=== PATIENT | male | born 1955 | race Caucasian/White ===

== ENCOUNTER 2021-08-23 10:59 | Emergency (ER) | payer MEDICARE, OTHER, SELFPAY ==
--- NOTE | ~2021-08-23 | XR_ITS ---
EXAMINATION: XR chest 1V portable INDICATION: Cough TECHNIQUE: Portable AP chest at 1123 hours COMPARISON: None available FINDINGS: A calcified nodule of the right lower lobe is consistent with old granulomatous disease. Th ere are minimal airspace opacities of the left upper and lower lung zones. No pleural effusion or pne umothorax is identified. The cardiomediastinal silhouette is normal. IMPRESSION: 1. Minimal airspace opacities of the left lung, consistent with atelectasis versus pneumonia. Reviewed, dictated and finalized at location A. [place] [employer] IMPRESSION: 1. Minimal airspace opacities of the left lung, consistent with atelectasis hao jorge pneumonia.
[2021-08-23 11:05] VITALS: BP 128/71; PULSE 92; RESP 18; TEMP 35.7; O2SAT 97
[2021-08-23 11:45] VITALS: BP 132/86; PULSE 78; RESP 13; TEMP 35.7
[2021-08-23 11:57] VITALS: BP 132/86; PULSE 74; RESP 14; O2SAT 97
--- NOTE | 2021-08-23 12:09 | ED.GENADULT ---
HPI - General Adult General Chief complaint: Upper Respiratory Infection Stated complaint: i think i have covid Time Seen by Provider: 08/23/21 11:44 History of Present Illness HPI narrative: 66-year-old male presented to the department for evaluation of cough and shortness of breath after Covid exposure. Patient was exposed to Covid over . Patient's did test positive for Covid on 08/15. Patient began feeling symptomatic on 08/16. Patient felt that his symptoms had been improving but then began to worsen. Patient complains of cough, shortness of breath and generalized fatigue. Related Data Allergies Allergy/AdvReac Type Severity Reaction Status Date / Time No Known Allergies Verified 07/20/10 11:40 Review of Systems Review of Systems: CONSTITUTIONAL: Intermittent fever, chills, generalized fatigue EYES: Denies visual changes, redness, or discharge. ENT: Denies rhinorrhea, congestion, sore throat, or otalgia. CARDIOVASCULAR: Denies chest pain, palpitations, or edema. RESPIRATORY: Cough and dyspnea. GASTROINTESTINAL: Denies abdominal pain, nausea, vomiting, or diarrhea. GENITOURINARY: Denies dysuria or hematuria. SKIN: Denies rash or itching. MUSCULOSKELETAL: Denies back pain, joint pain, or myalgia. NEUROLOGIC: Denies headache, numbness, or weakness. PSYCHIATRIC: Denies anxiety or depression. Exam Narrative: APPEARANCE: Well appearing, no pain in distress, well-nourished. Head normocephalic atraumatic. EYES: PERRLA/EOMI, conjunctivae very clear. NOSE: Normal no drainage EARS:TMS clear Kirit Whitley, with good light reflex. THROAT: Pharynx clear, no exudate. NECK: Supple. No adenopathy, no masses. RESPIRATORY: Airway patent, respirations nonlabored. Clear to auscultation bilaterally, no rales, rhonchi, wheezing. CARDIOVASCULAR: Regular rate and rhythm without murmurs rubs or gallops. ABDOMINAL: Soft, nontender, nondistended, no hepatosplenomegally MUSCULOSKELETAl: Moves all extremities. Strength/ROM intact, No edema, No calf tenderness. NEURO: Alert. Cranial nerves II through XII intact. Good gait. Good coordination SKIN:: Warm, dry. Normal Color PSYCHIATRIC: Normal affect/mood, normal interaction with parents. Course Course Emergency Course: Patient's x-ray does show opacities on the left lung consistent with pneumonia versus atelectasis. Patient is presumed to have a viral Covid pneumonia. Patient states he did feel he was improving but then worsened. Due to the possibility of having underlying bacterial infection patient was started on antibiotics, azithromycin. Patient was updated on the results of his imaging. Patient's vital signs were stable during his stay in the emergency room. Patient was comfortable with the plan for discharge and close follow-up. Patient was educated on the importance of close follow-up with his primary care physician. Patient was also educated on the importance of return to the emerge department if he had any worsening symptoms. All questions and concerns were addressed. Vital Signs Vital signs: Vital Signs Temperature 96.2 F L 08/23/21 11:05 Pulse Rate 92 08/23/21 11:05 Respiratory Rate 18 08/23/21 11:05 Blood Pressure 128/71 08/23/21 11:05 Pulse Oximetry 97 08/23/21 11:05 Temperature 96.2 F L 08/23/21 11:45 Pulse Rate 89 08/23/21 12:55 Respiratory Rate 16 08/23/21 12:55 Blood Pressure 112/75 08/23/21 12:55 Pulse Oximetry 95 08/23/21 12:55 Medical Decision Making Differential Diagnosis Differential Diagnosis: Viral pneumonia, Covid pneumonia, bacterial pneumonia Vital Signs Vital Signs: Vital Signs Temperature 96.2 F L 08/23/21 11:05 Pulse Rate 92 08/23/21 11:05 Respiratory Rate 18 08/23/21 11:05 Blood Pressure 128/71 08/23/21 11:05 Pulse Oximetry 97 08/23/21 11:05 Temperature 96.2 F L 08/23/21 11:45 Pulse Rate 89 08/23/21 12:55 Respiratory Rate 16 08/23/21 12:55 Blood Pressure 112/75 08/23/21 12:55
[2021-08-23 12:55] VITALS: BP 112/75; PULSE 89; RESP 16; O2SAT 95
[2021-08-25 19:26] LABS: SARS-CoV-2 RNA PCR Negative
== END 2021-08-23 12:56 | disposition home or self-care (01) ==
PROVIDERS: Emergency Provider Emergency Medicine; PCP Internal Medicine
DX: J06.9 Acute upper respiratory infection, unspecified (principal); Z20.822 Contact with and (suspected) exposure to COVID-19
CPT/HCPCS: 71045; 99283; C9803; U0003; U0005

== ENCOUNTER 2023-06-10 16:31 | Outpatient (CLI) | payer MEDICARE, OTHER, SELFPAY ==
--- NOTE | ~2023-06-10 | CT_ITS ---
EXAMINATION: CT abdomen pelvis wo con DATE: 06/10/2023 16:59 INDICATION: Remote history of uroepithelial cancer, apparently untreated. Gross hematuria. TECHNIQUE: Computed tomography (CT) of the abdomen and pelvis was performed without intravenous contr ast. Automated exposure control and iterative reconstruction technique were employed. The dose-length product was 544.51 mGy-cm. COMPARISON: None. FINDINGS: Lower thorax: Calcified right upper lobe granuloma. Coronary artery calcification. Liver: Multiple cysts/hemangiomas. Multiple smaller hypodensities, too small to characterize. Biliary/Gallbladder: Gallbladder is normal. No bile duct dilation. Pancreas: No mass or duct dilation. Spleen: Normal. Adrenals:No mass. Kidneys: No suspicious mass, obstructing stone, or hydronephrosis. GI tract: No small or large bowel dilation. Normal appendix. Mesentery/Peritoneum: No ascites, mass, or free air. Retroperitoneum: No mass. Atherosclerotic abdominal aortic and/or arterial calcifications. Pelvis: Bladder wall thickening. No definite intraluminal filling defect or mass. Prostate enlargemen t with calcification. Soft Tissues: Soft tissues and body wall unremarkable. Bones: No acute osseous finding. IMPRESSION: No definite mass detected in the collecting system, noting that dilation is limited by noncontrast te [place]. No hydronephrosis. No lymphadenopathy. Bladder wall thickening may be secondary to cystitis or outlet compromise. Otherwise, acute abdominal pelvic process detected Reviewed, dictated and finalized at location K. IMPRESSION: No definite mass detected in the collecting system, noting that dilation is vail ited by noncontrast technique. No hydronephrosis. No lymphadenopathy. Bladder wall thickening may be secondary to cystitis or outlet compromise. Otherwise, acute abdominal pelvic process detected
== END 2023-06-10 16:32 | disposition home or self-care (01) ==
PROVIDERS: PCP Physician Assistant; Visit Provider Urology
DX: Z85.51 Personal history of malignant neoplasm of bladder (principal)
CPT/HCPCS: 74176

== ENCOUNTER 2023-06-11 02:12 | Day surgery (SDC) | payer MEDICARE, OTHER, SELFPAY ==
[2023-06-11] VITALS (9 sets, daily range): BP systolic 128–151; BP diastolic 70–86; PULSE 51–65; RESP 10–16; TEMP 36.1–36.7; O2SAT 100; BMI 26.4; BMI 26.2
--- NOTE | ~2023-06-11 | XR_ITS ---
EXAMINATION: XR retrograde pyelo w/stent BI DATE: 06/11/2023 14:38 INDICATION: Bilateral retrograde pyelograms and right-sided ureteral stent placement. TECHNIQUE: 27 fluoroscopic images of the abdomen and pelvis were obtained during procedure performed by Dr. Russell. Radiologist was not present for the imaging or procedure. The amount of fluoroscopy time used during this procedure was 0.5 minutes. COMPARISON: CT dated 06/10/2023 FINDINGS: Images demonstrate cannulation and retrograde contrast injection into the bilateral ureters and renal collecting systems. On the left there is a short mild stricture with smooth margins at the distal le ft ureter. No hydronephrosis. Left renal collecting system appears normal. The right ureter is normal . There appears to be relative narrowing of the calyces and infundibulum at the upper pole of the lef t kidney relative to the calyces and infundibuli in the mid to lower right kidney. On subsequent imag es with further filling of the collecting system this appears to result from a 1 cm diameter lucent f illing defect raising concern for urothelial carcinoma. Final images demonstrate placement of a right internal ureteral stent with proximal loop formed in the right renal pelvis. IMPRESSION: 1. Approximately 1 cm filling defect at the renal collecting system at the upper pole of the right ki dney concerning for urothelial carcinoma. See procedure note for further detail. 2. Right internal ureteral stent placement in expected position with proximal loop in the renal pelvi s. Reviewed, dictated and finalized at location A. IMPRESSION: 1. Approximately 1 cm filling defect at the renal collecting system at the uppe r pole of the right kidney concerning for urothelial carcinoma. See procedure n ote for further detail. 2. Right internal ureteral stent placement in expected position with proximal l oop in the renal pelvis.
--- NOTE | 2023-06-11 08:25 | PC.NURSE ---
Report to the Outpatient Waiting Room, entrance under the green pavilion located off [facility], at time 1100 on date 06/11/23. Planned Procedure Time: 1300. Time changes happen often and if your time is changed the preop area will call you the afternoon before. - You and your visitor will be asked to self-screen and do not enter if you have any COVID symptoms. - A mask is optional within the hospital at this time. Patients may have clear liquids (water, carbonated beverages, clear teas, apple juice) until 3 hours prior to surgery with a maximum of 20 ounces. - No food from midnight until time of surgery Take the following medications with a SIP of water the morning of surgery: LEVOTHYROXINE DO NOT STOP ANY OF YOUR OTHER PRESCRIPTION MEDICATIONS PRIOR TO SURGERY ?EXCEPT THE FOLLOWING Medications to discontinue per physician: N/A Date to take last dose: N/A Please no make-up, nail welsh, hairspray, perfume, deodorant, or body powder the day of surgery. No jewelry (including any body piercings) or valuables the day of surgery, leave them at home. Please take a shower or bath the night before, or the morning of, surgery with an antibacterial soap. Wear comfortable, loose fitting clothing. - Jewelry must be removed prior to entering the operating room. Rings and piercings that are not removed may be cut off. - The hospital will not accept responsibility for valuables. - Please leave all valuables, including medications, at home the day of surgery. If you are going home after surgery, a licensed route sales delivery drivers supervisor must drive you home. - NO public transportation without another adult if you receive anesthesia. - We recommend that an adult stay with you for 24 hours following discharge. - We also recommend that you do not drive, make important decision, drink alcoholic beverages, or take any drugs that were not prescribed by your health care provider for at least 24 hours after your discharge time. Follow any additional instructions given to you from your surgeon. If you or anyone in your household have experienced Covid symptoms in the past week, please notify your surgeon or the nurse liaison at the phone number below for possible testing. Telephone instructions given to PT - TARA NOVAK and asked if any additional questions and then verbalized understanding. Patient advised to call surgeon office or pre surgery nurse liaison [phone] if any additional questions.
[2023-06-11] MEDS: LACTATED RINGERS 1,000 ML 30 ML IV CONT (11:40)
--- NOTE | 2023-06-11 11:40 | WPDHPUPDATE1 ---
History and Physical Update Update Date/Time: 06/11/23 11:40 History and Physical has been reviewed, including an updated exam of the patient. There are NO changes in the patient's condition. Risks, benefits, and alternatives have been discussed and questions answered. Patient agrees to proceed with procedure. Proceed with cystoscopy, clot evacuation, bilateral retrograde pyelograms, possible TURBT
--- NOTE | 2023-06-11 11:49 | ECG_ITS ---
Measurements Intervals Shepherd Rate: 53 P: 50 ME: 211 QRS: 40 QRSD: 90 T: 49 QT: 398 QTc: 374 Interpretive Statements SINUS BRADYCARDIA WITH FIRST DEGREE AV BLOCK BORDERLINE ECG NO PREVIOUS ECG AVAILABLE FOR COMPARISON Electronically Signed On 06-11-2023 12:31:26 CDT by Ja Calle D.O.
[2023-06-11 11:53] LABS: Basophils Percent Auto 0.7 % (0.2-1.2); Eosinophils Absolute Auto 0.1 K/mm3 (0-0.3); Eosinophils Percent Auto 2.6 % (0-4.4); Hematocrit 46.5 % (42.0-52.0); Hemoglobin 15.5 g/dL (14.0-18.0); Immature Granulocyte Absolute 0.03 K/mm3 (0.00-0.031); Immature Granulocyte Percent A 0.6 % (0-0.5); Lymphocytes Absolute Auto 1.93 K/mm3 (0.9-3.2); Lymphocytes Percent Auto 35.5 % (18.3-44.2); Mean Corpuscular HGB Conc 33.3 g/dl (32-36); Mean Corpuscular Hemoglobin 30.8 pg (26-34); Mean Corpuscular Volume 92.3 fl (80-100); Mean Platelet Volume 10.3 fl (7.4-10.4); Monocytes Absolute Auto 0.6 K/mm3 (0.1-0.6); Neutrophils Absolute Auto 2.7 K/mm3 (1.3-6.7); Neutrophils Percent Auto 49.6 % (45.5-73.1); Platelet Count Result 188 k/mm3 (150-375); Red Blood Count 5.04 M/mm3 (4.6-6.20); White Blood Count 5.4 K/mm3 (4.5-10.0)
[2023-06-11 11:58] LABS: Anion Gap 8 mmol/L (8-16); Blood Urea Nitrogen 19 mg/dL (9-20); Carbon Dioxide 25 mmol/L (22-30); Chloride 105 mmol/L (98-107); Estimated CRCL calculation 63 ml/min; Estimated Glomerular Filt Rate > 60; Glucose 93 mg/dL (65-110); Potassium 4.1 mmol/L (3.4-5.0); Prothrombin Time 13.3 Seconds (11.1-14.7); Sodium 138 mmol/L (137-145)
--- NOTE | 2023-06-11 12:00 | SUR.PREOP ---
1200- Notified patient procedure start time will be delayed. Patient and spouse, Alison verbalized understanding.
--- NOTE | 2023-06-11 12:07 | WPDANESEPPF ---
Anes - Initial Pre Proc Eval Procedure: Operation Date: 06/11/23 13:00 Proposed Procedures p Cystoscopy, Possible Retrograde Pyelogram, Clot Evacuation, - Mike Russell MD s Possible Transurethral Resection of Bladder Tumor - Mike Russell MD Date/Time: 06/11/23 12:07 Surgeon: Mike Russell MD Pre Op Diagnosis: gross hematuria Patient Data Age: 68 Gender: M Height: 1.78 m Weight: 82.8 kg Allergies Allergy/AdvReac Type Severity Reaction Status Date / Time No Known Allergies Allergy Verified 06/11/23 11:24 Home Medications Medication Instructions Recorded Confirmed Type atorvastatin 10 mg tablet 10 mg PO HS 06/11/23 06/11/23 History levothyroxine 50 mcg tablet 50 mcg PO DAILY 06/11/23 06/11/23 History Laboratory Tests 06/11/23 11:19 WBC 5.4 K/mm3 (4.5-10.0) RBC 5.04 M/mm3 (4.6-6.20) Hgb 15.5 g/dL (14.0-18.0) Hct 46.5 % (42.0-52.0) MCV 92.3 fl (80-100) MCH 30.8 pg (26-34) MCHC 33.3 g/dl (32-36) RDW 12.0 % (11.5-14.5) Plt Count 188 k/mm3 (150-375) MPV 10.3 fl (7.4-10.4) Immature Gran % (Auto) 0.6 H % (0-0.5) Neut % (Auto) 49.6 % (45.5-73.1) Lymph % (Auto) 35.5 % (18.3-44.2) [place] % (Auto) 11.0 H % (2.6-8.5) Eos % (Auto) 2.6 % (0-4.4) Baso % (Auto) 0.7 % (0.2-1.2) Lymph # (Auto) 1.93 K/mm3 (0.9-3.2) [place] # (Auto) 0.6 K/mm3 (0.1-0.6) Eos # (Auto) 0.1 K/mm3 (0-0.3) Baso # (Auto) 0.0 K/mm3 (0.0-0.1) Abs Immat Gran (auto) 0.03 K/mm3 (0.00-0.031) Absolute Neuts (auto) 2.7 K/mm3 (1.3-6.7) Absolute Nucleated RBC 0.0 K/mm3 (0.0-0.012) Nucleated RBC % 0.0 % (0.0-0.2) PT 13.3 Seconds (11.1-14.7) INR 1.0 APTT 31.0 SECONDS (22.3-36.8) Sodium 138 mmol/L (137-145) Potassium 4.1 mmol/L (3.4-5.0) Chloride 105 mmol/L (98-107) Carbon Dioxide 25 mmol/L (22-30) Anion Gap 8 mmol/L (8-16) BUN 19 mg/dL (9-20) Creatinine 1.00 mg/dL (0.7-1.3) Estim Creat Clear Calc 63 ml/min Estimated GFR > 60 (59 - ) Glucose 93 mg/dL (65-110) Calcium 9.0 mg/dL (8.4-10.2) Patient hx anesthesia problems: none Family hx anesthesia problems: none Results Review: All pre-operative results and documents have been reviewed as part of the pre-operative evaluation. [facility] Past Medical History Medical History (Updated 06/11/23 @ 12:07 by Jorge Jose MD) Hyperlipidemia Hypothyroidism Social History Social History Smoking packs per day: 1.5 Smoking cigarettes per day: 30.0 Years smoked: 17 Smoking pack-years: 25.50 Smoking status: Former smoker Tobacco type: cigarettes Smoking end date: 09/16/85 Alcohol intake: former Alcohol use details: QUIT ~1988 Substance use: former Substance use type: marijuana Other substance usage details: QUIT ~1988 Living arrangements: with family Spiritual care concerns: No Anes - Eval Final PreProcedure Day of Procedure 06/11/23 12:07 Patient weight: normal Heart: regular rate and rhythm Lungs: clear to auscultation Airway: Mallampati scale class II Neurological: alert and oriented Last oral intake: >/= 8 hours ASA classification: II Emergent: no Anesthetic plan: proceed Anesthesia type and monitoring: general LMA and standard monitoring Results Review: All pre-operative results and documents have been reviewed as part of the pre-operative evaluation. Informed Consent: The patient's anesthetic plan and its attendant risks and benefits were discussed with the patient/family/POA. Questions were solicited and answers provided to the satisfaction of the patient/family/POA.
[2023-06-11] MEDS: ceFAZolin 2 GM/D5W 50 ML 2 GM/50 ML BAG IVPB (13:44)
[2023-06-11] MEDS: LIDOCAINE HCL 2% GEL UROJET 10 ML PKG MUCOUS MEM (13:59)
--- NOTE | 2023-06-11 14:26 | SUR.OPER ---
Urine and bx specimens sent fresh to Lab per Cathi PCT
--- NOTE | 2023-06-11 14:37 | W.PM.PROC2 ---
Procedure Note - Detailed Date of Procedure 06/11/23 Pre-op Diagnosis gross hematuria Post-op Diagnosis Same (Right upper pole collecting system mass at least 1 cm) Procedure Performed Cystoscopy, bilateral retrograde pyelograms, distal left ureteroscopy, right ureteroscopy with biopsy of right upper pole calyx lesion, right ureteral stent placement 4.8 [place] contour Surgeon Mike Russell MD Anesthesia General Description of Procedure Patient is taken to the operative suite correctly identified. Once anesthesia was obtained he was placed in the dorsal lithotomy position and prepped and draped usual sterile fashion. Twenty-two [place]ib[place]ian scope was inserted the bladder. He does have a lateral lobe hypertrophy. Upon entering the bladder the bladder is heavily trabeculated. Both ureteral orifices normal anatomic position. There was clear efflux from the left UO. The right ureteral orifice had bloody efflux. Using a ureteral catheter a retrograde pyelogram was performed on the left. There were no filling defects in the proximal ureter collecting system. The distal ureter appeared slightly narrow. The right retrograde pyelogram revealed what was possibly a filling defect in the right upper pole. At this point time ureteroscopy of the distal left ureter was performed. There was no evidence of tumors or strictures. The area in question was actually some tortuosity of the ureter. Flexible ureteral scope was then inserted into the right ureteral orifice. There were no ureteral tumors. Upon entering the kidney though the collecting system was all evaluated. A lesion was noted in the right upper pole calyx. It tend to fill most of the calyx. Fluid was taken from this area and sent for cytology. I then biopsied this lesion. 4.8 [place] contour stent was then placed with the proximal end coiled in the renal pelvis and the distal in the bladder. Bladder was drained. 2% viscous lidocaine was inserted urethra patient is taken recovery stable condition. He will follow-up in a week to 2 weeks for discussion of his path and findings. This completes dictation. Please send a copy of operative note to my office. Estimated Blood Loss 10 Drains Yes Packing No Pathology Yes Complications No immediate complications Condition Stable Disposition PACU
== END 2023-06-11 16:18 | disposition home or self-care (01) ==
PROVIDERS: PCP Physician Assistant; Visit Provider Urology
PROC: (CPT 52352; principal; 2023-06-11 13:00)
DX: N28.89 Other specified disorders of kidney and ureter (principal); E78.5 Hyperlipidemia, unspecified; E03.9 Hypothyroidism, unspecified; Z87.891 Personal history of nicotine dependence
CPT/HCPCS: 52354; 52332; 36415; 74420; 80048; 85025; 85610; 85730; 87086; 88108; 88305; 93005; C1758; C1769; C2617; J0690; J1100; J2405; J2704; J3010; J7120; Q9966

== ENCOUNTER 2023-06-25 13:58 | Outpatient (CLI) | payer MEDICARE, OTHER, SELFPAY ==
--- NOTE | ~2023-06-25 | CT_ITS ---
CT of the Abdomen and Pelvis: Indication: Urinary bladder neoplasm Technique: 2.5 mm axial scans were obtained through the abdomen and pelvis prior to and following in travenous administration of 130 cc of Omnipaque 350. Dose reduction technique was used on this scan b y utilizing automated exposure control and iterative reconstruction technique. The dose-length produc t (DLP) was 1553.47 mGy-cm. COMPARISON: 06/10/2023 Findings: Scans through the lung bases are unremarkable. Small hepatic cysts are present. The spleen, pancreas, gallbladder, adrenals and adrenal glands are w ithin normal limits. Right ureteral stent is in place. There is a 2.5 x 2.0 cm right renal mass, hypo enhancing compared to renal cortical parenchyma (series 7 image 71 for example), with lesion extendin g into the collecting system (axial image 72). Small bilateral renal cysts are present. There are ath erosclerotic calcifications of the aorta. No lymphadenopathy. No bowel obstruction or bowel wall thickening. There is no evidence to suggest acute appendicitis. Images through the pelvis were performed. Prostate gland is enlarged. Urinary bladder unremarkable. N o ascites. Impression: 2.5 x 2.0 cm right renal mass, with extension into the renal collecting system, as detailed above. Th is is suspicious for renal cell carcinoma until proven otherwise. Right ureteral stent in place. Reviewed, dictated and finalized at location . Impression: 2.5 x 2.0 cm right renal mass, with extension into the renal collecting system, as detailed above. This is suspicious for renal cell carcinoma until proven ot herwise. Right ureteral stent in place.
== END 2023-06-25 13:59 | disposition home or self-care (01) ==
PROVIDERS: PCP Physician Assistant; Visit Provider Urology
DX: C67.0 Malignant neoplasm of trigone of bladder (principal)
CPT/HCPCS: 74178; Q9967

== ENCOUNTER 2023-07-04 13:30 | Outpatient (CLI) | payer MEDICARE, OTHER, SELFPAY ==
[2023-07-04 14:57] LABS: Alanine Aminotransferase 25 U/L (6-50); Albumin Level 4.6 g/dL (3.5-5.1); Alkaline Phosphatase 54 U/L (38-126); Anion Gap 8 mmol/L (8-16); Aspartate Amino Transferase 30 U/L (17-59); Bilirubin,Total 0.7 mg/dL (0.2-1.3); Blood Urea Nitrogen 18 mg/dL (9-20); Calcium 9.1 mg/dL (8.4-10.2); Carbon Dioxide 28 mmol/L (22-30); Chloride 101 mmol/L (98-107); Estimated Glomerular Filt Rate 60; Glucose 120 mg/dL (65-110); Potassium 4.1 mmol/L (3.4-5.0); Sodium 137 mmol/L (137-145)
== END 2023-07-04 13:31 | disposition home or self-care (01) ==
LOC: ANHSURGERY 13:35
PROVIDERS: PCP Physician Assistant; Visit Provider Urology
DX: N28.89 Other specified disorders of kidney and ureter (principal); Z01.818 Encounter for other preprocedural examination
CPT/HCPCS: 36415; 80053; 86850; 86900; 86901; 87086; 87147; 87181; 87186

== ENCOUNTER 2023-08-01 09:12 | Outpatient (CLI) | payer MEDICARE, SELFPAY | END 2023-08-01 09:13 | disposition home or self-care (01) | LOC: ANHSURGERY 09:16 | PROVIDERS: PCP Physician Assistant; Visit Provider Urology | DX: N28.89 Other specified disorders of kidney and ureter (principal); Z01.818 Encounter for other preprocedural examination | CPT/HCPCS: 36415; 86850; 86900; 86901; 87086 ==

== ENCOUNTER 2023-08-06 11:28 | Inpatient (IN) | payer MEDICARE, SELFPAY ==
--- NOTE | 2023-07-04 13:43 | PC.NURSE ---
PRE-OP INSTRUCTIONS, PLEASE READ CAREFULLY Report to the Outpatient Waiting Room, entrance under the green pavilion located off [facility], at time _0600_ on date _07/09/23_. Planned Procedure Time: _0730_. PACK A SMALL OVERNIGHT BAG AND LEAVE IT IN THE CAR Time changes happen often and if your time is changed the preop area will call you the afternoon before. - You and your visitor will be asked to self-screen and do not enter if you have any COVID symptoms. - A mask is optional within the hospital at this time. -VISITING HOURS 8AM-8PM Patients may have clear liquids (water, carbonated beverages, clear teas, apple juice) until 3 hours prior to surgery (0430 AM) with a maximum of 20 ounces. - No food from midnight until time of surgery Take the following medications with a SIP of water the morning of surgery: _LEVOTHYROXINE_ DO NOT STOP ANY OF YOUR OTHER PRESCRIPTION MEDICATIONS PRIOR TO SURGERY ?EXCEPT THE FOLLOWING Medications to discontinue per ANESTHESIA - _MULTIVITAMIN & SUPPLEMENTS 3 DAYS PRIOR TO SURGERY, Date to take last dose 07/05/23_ Please no make-up, nail equatorial guinean, hairspray, perfume, deodorant, or body powder the day of surgery. No jewelry (including any body piercings) or valuables the day of surgery, leave them at home. Please take a shower or bath the night before, or the morning of, surgery with an antibacterial soap. Wear comfortable, loose fitting clothing. - Jewelry must be removed prior to entering the operating room. Rings and piercings that are not removed may be cut off. - The hospital will not accept responsibility for valuables. - Please leave all valuables, including medications, at home the day of surgery. If you are going home after surgery, a licensed [employer] company driver must drive you home. - NO public transportation without another adult if you receive anesthesia. - We recommend that an adult stay with you for 24 hours following discharge. - We also recommend that you do not drive, make important decision, drink alcoholic beverages, or take any drugs that were not prescribed by your health care provider for at least 24 hours after your discharge time. Follow any additional instructions given to you from your surgeon. If you or anyone in your household have experienced Covid symptoms in the past week, please notify your surgeon or the nurse liaison at the phone number below for possible testing. Instructions given to _PATIENT & SPOUSE_and asked if any additional questions and then verbalized understanding. Patient advised to call surgeon office or pre surgery nurse liaison [phone] if any additional questions.
[2023-07-04 14:02] VITALS: BP 138/74; PULSE 74; RESP 20; TEMP 36.9; O2SAT 100; BMI 26.6
--- NOTE | 2023-07-08 13:35 | WPDANESEPPF ---
Anes - Initial Pre Proc Eval Procedure: Operation Date: 07/09/23 07:30 Proposed Procedures p Hand-Assisted Laparoscopic Right Nephrectomy, Possible Nephroureterectomy with Resection of Right Ureteral Orifice - Mike Russell MD Date/Time: 07/08/23 13:35 Surgeon: Mike Russell MD Pre Op Diagnosis: Rt Renal Mass Patient Data Age: 68 Gender: M Height: 1.78 m Weight: 84.3 kg Last Vital Signs Temp 36.9 C 07/04/23 14:02 Pulse 74 07/04/23 14:02 Resp 20 07/04/23 14:02 BP 138/74 07/04/23 14:02 Pulse Ox 100 07/04/23 14:02 O2 Del Method Room Air 07/04/23 14:02 Allergies Allergy/AdvReac Type Severity Reaction Status Date / Time No Known Allergies Allergy Verified 07/04/23 13:54 Home Medications Medication Instructions Recorded Confirmed Type atorvastatin 10 mg tablet 10 mg PO HS 06/11/23 07/04/23 History levothyroxine 50 mcg tablet 50 mcg PO DAILY 06/11/23 07/04/23 History calcium citrate 315 mg-vitamin D3 1 tablet PO DAILY 07/04/23 07/04/23 History 5 mcg (200 unit) tablet (Calcium Citrate + D) cartilage 40 mg-collagen II 10 1 tablet PO DAILY 07/04/23 07/04/23 History mg-boron 5 mg-hyaluronate 3.3 mg tablet ([employer]) docusate sodium 250 mg capsule 250 mg PO EVERY OTHER DAY 07/04/23 07/04/23 History ferrous sulfate 27 mg iron tablet 27 mg PO DAILY 07/04/23 07/04/23 History multivitamin 1 tablet PO DAILY 07/04/23 07/04/23 History omega 6-kcw-fbp-fish oil 1,000 mg 2 cap PO DAILY 07/04/23 07/04/23 History (120 mg-180 mg) capsule (Fish Oil) Results Review: All pre-operative results and documents have been reviewed as part of the pre-operative evaluation. [facility] Past Medical History Medical History (Updated 07/08/23 @ 13:35 by Nilton Talley DO) Bladder cancer Hyperlipidemia Hypothyroidism Surgical History Surgical History (Updated 07/08/23 @ 13:35 by Nilton Talley DO) H/O transurethral resection of bladder tumor (TURBT) Social History Social History Smoking packs per day: 1.5 Smoking cigarettes per day: 30.0 Years smoked: 17 Smoking pack-years: 25.50 Smoking status: Former smoker Tobacco type: cigarettes Second hand tobacco smoke exposure: No Smoking end date: 09/16/85 Alcohol intake: former Alcohol use details: QUIT 1988 Substance use: former Substance use type: marijuana Other substance usage details: QUIT ~1988 Last use: 1988 Living arrangements: with family Spiritual care concerns: No Anes - Eval Final PreProcedure Day of Procedure 07/08/23 13:35 Patient weight: overweight Heart: regular rate and rhythm Lungs: clear to auscultation Airway: Mallampati scale class II Neurological: alert and oriented Last oral intake: >/= 8 hours ASA classification: III Emergent: no Anesthetic plan: proceed Anesthesia type and monitoring: general ETT and standard monitoring Results Review: All pre-operative results and documents have been reviewed as part of the pre-operative evaluation. Informed Consent: The patient's anesthetic plan and its attendant risks and benefits were discussed with the patient/family/POA. Questions were solicited and answers provided to the satisfaction of the patient/family/POA.
--- NOTE | 2023-07-29 11:04 | PC.NURSE ---
Report to the Outpatient Waiting Room, entrance under the green pavilion located off [facility], at time _0600 on date 08/06/23 . Planned Procedure Time: ___0730 . Time changes happen often and if your time is changed the preop area will call you the afternoon before. - You and your visitor will be asked to self-screen and do not enter if you have any COVID symptoms. - A mask is optional within the hospital at this time. Patients may have clear liquids (water, carbonated beverages, clear teas, apple juice) until 3 hours prior to surgery with a maximum of 20 ounces. - No food from midnight until time of surgery - Infants may have breast milk until 4 hours before surgery, formula 6 hours prior to surgery. - Children will be allowed to drink immediately following surgery. If applicable, please bring a bottle or sippy cup to assist with drinking. Juice, water, soda, and popsicles are readily available. For infants on formula, please bring formula the day of surgery. Pacifiers are allowed. Take the following medications with a SIP of water the morning of surgery: ____LEVOTHYROXINE DO NOT STOP ANY OF YOUR OTHER PRESCRIPTION MEDICATIONS PRIOR TO SURGERY ?EXCEPT THE FOLLOWING Medications to discontinue per physician ___ALL VITAMINS AND SUPPLEMENTS 3 DAYS PRE OP.LAST DOSE 08/02/23 Please no make-up, nail citizen of [place], hairspray, perfume, deodorant, or body powder the day of surgery. No jewelry (including any body piercings) or valuables the day of surgery, leave them at home. Please take a shower or bath the night before, or the morning of, surgery with an antibacterial soap. Wear comfortable, loose fitting clothing. Children are encouraged to wear pajamas. - Jewelry must be removed prior to entering the operating room. Rings and piercings that are not removed may be cut off. - The hospital will not accept responsibility for valuables. - Please leave all valuables, including medications, at home the day of surgery. If you are going home after surgery, a licensed fire truck driver must drive you home. - NO public transportation without another adult if you receive anesthesia. - We recommend that an adult stay with you for 24 hours following discharge. - We also recommend that you do not drive, make important decision, drink alcoholic beverages, or take any drugs that were not prescribed by your health care provider for at least 24 hours after your discharge time. For Pediatric surgeries, we recommend two adults accompany the child home. Follow any additional instructions given to you from your surgeon. If you or anyone in your household have experienced Covid symptoms in the past week, please notify your surgeon or the nurse liaison at the phone number below for possible testing. Telephone instructions given to ____PATIENT and asked if any additional questions and then verbalized understanding. Patient advised to call surgeon office or pre surgery nurse liaison [phone] if any additional questions.
--- NOTE | 2023-07-29 11:13 | PC.NURSE ---
PT STATES NO CHANGE IN HEALTH HX SINCE LAST INTERVIEW ON 07/04/23 EXCEPT HAD POSITIVE URINE CULTURE AND WAS PLACED ON ABX X 5 DAYS
[2023-08-06] VITALS (11 sets, daily range): BP systolic 124–161; BP diastolic 59–90; PULSE 68–78; RESP 12–20; TEMP 35.8–36.8; O2SAT 92–100
[2023-08-06] MEDS: LACTATED RINGERS 1,000 ML 30 ML IV CONT ×2 (06:25→10:42)
--- NOTE | 2023-08-06 07:04 | WPDANESEPPF ---
Anes - Initial Pre Proc Eval Procedure: Operation Date: 08/06/23 07:30 Proposed Procedures p Hand-Assisted Laparoscopic Right Nephrectomy, Possible Nephroureterectomy with Resection of Right Ureteral Orifice - Mike Russell MD Date/Time: 08/06/23 07:04 Surgeon: Mike Russell MD Pre Op Diagnosis: Rt Renal Mass Patient Data Age: 68 Gender: M Height: 1.78 m Weight: 84.3 kg Last Vital Signs Temp 36.9 C 07/04/23 14:02 Pulse 74 07/04/23 14:02 Resp 20 07/04/23 14:02 BP 138/74 07/04/23 14:02 Pulse Ox 100 07/04/23 14:02 O2 Del Method Room Air 07/04/23 14:02 Allergies Allergy/AdvReac Type Severity Reaction Status Date / Time No Known Allergies Allergy Verified 08/06/23 06:12 Home Medications Medication Instructions Recorded Confirmed Type atorvastatin 10 mg tablet 10 mg PO HS 06/11/23 08/06/23 History levothyroxine 50 mcg tablet 50 mcg PO DAILY 06/11/23 08/06/23 History calcium citrate 315 mg-vitamin D3 1 tablet PO DAILY 07/04/23 08/06/23 History 5 mcg (200 unit) tablet (Calcium Citrate + D) cartilage 40 mg-collagen II 10 1 tablet PO DAILY 07/04/23 08/06/23 History mg-boron 5 mg-hyaluronate 3.3 mg tablet ([facility]) docusate sodium 250 mg capsule 250 mg PO EVERY OTHER DAY 07/04/23 08/06/23 History ferrous sulfate 27 mg iron tablet 27 mg PO DAILY 07/04/23 08/06/23 History multivitamin 1 tablet PO DAILY 07/04/23 08/06/23 History omega 5-jyj-jty-fish oil 1,000 mg 2 cap PO DAILY 07/04/23 08/06/23 History (120 mg-180 mg) capsule (Fish Oil) Patient hx anesthesia problems: none Family hx anesthesia problems: none Results Review: All pre-operative results and documents have been reviewed as part of the pre-operative evaluation. [facility] Past Medical History Medical History (Updated 07/08/23 @ 13:35 by Nilton Talley DO) Bladder cancer Hyperlipidemia Hypothyroidism Surgical History Surgical History (Updated 07/08/23 @ 13:35 by Nilton Talley DO) H/O transurethral resection of bladder tumor (TURBT) Social History Social History Smoking packs per day: 1.5 Smoking cigarettes per day: 30.0 Years smoked: 17 Smoking pack-years: 25.50 Smoking status: Former smoker Tobacco type: cigarettes Second hand tobacco smoke exposure: No Smoking end date: 09/16/85 Alcohol intake: former Alcohol use details: QUIT 1988 Substance use: former Substance use type: marijuana Other substance usage details: QUIT ~1988 Last use: 1988 Living arrangements: with family Spiritual care concerns: No Anes - Eval Final PreProcedure Day of Procedure 08/06/23 07:04 Patient weight: overweight Heart: regular rate and rhythm Lungs: clear to auscultation Airway: Mallampati scale class III Neurological: alert and oriented Last oral intake: >/= 8 hours ASA classification: III Emergent: no Anesthetic plan: proceed Anesthesia type and monitoring: general ETT and standard monitoring Results Review: All pre-operative results and documents have been reviewed as part of the pre-operative evaluation. Informed Consent: The patient's anesthetic plan and its attendant risks and benefits were discussed with the patient/family/POA. Questions were solicited and answers provided to the satisfaction of the patient/family/POA.
--- NOTE | 2023-08-06 07:13 | PM.IMHP ---
H&P: HPI History of Present Illness Date/Time: 08/06/23 07:13 Chief Complaint: right renal mass Narrative: 68 yr old male with history of bladder cancer found to now have a right renal mass. Presents for right nephrectomy , possible nephroureterectomy with resection of right ureteral orifice. Review of Systems Review of Systems: All systems reviewed & are unremarkable except as noted in HPI and below PMFSH Past Medical History Medical History Bladder cancer Hyperlipidemia Hypothyroidism Surgical History Surgical History H/O transurethral resection of bladder tumor (TURBT) Social History Social History Smoking packs per day: 1.5 Smoking cigarettes per day: 30.0 Years smoked: 17 Smoking pack-years: 25.50 Smoking status: Former smoker Tobacco type: cigarettes Second hand tobacco smoke exposure: No Smoking end date: 09/16/85 Alcohol intake: former Alcohol use details: QUIT 1988 Substance use: former Substance use type: marijuana Other substance usage details: QUIT ~1988 Last use: 1988 Living arrangements: with family Spiritual care concerns: No Meds Home Medications and Allergies Home Medications Medication Instructions Recorded Confirmed Type atorvastatin 10 mg tablet 10 mg PO HS 06/11/23 08/06/23 History levothyroxine 50 mcg tablet 50 mcg PO DAILY 06/11/23 08/06/23 History calcium citrate 315 mg-vitamin D3 1 tablet PO DAILY 07/04/23 08/06/23 History 5 mcg (200 unit) tablet (Calcium Citrate + D) cartilage 40 mg-collagen II 10 1 tablet PO DAILY 07/04/23 08/06/23 History mg-boron 5 mg-hyaluronate 3.3 mg tablet ([employer]) docusate sodium 250 mg capsule 250 mg PO EVERY OTHER DAY 07/04/23 08/06/23 History ferrous sulfate 27 mg iron tablet 27 mg PO DAILY 07/04/23 08/06/23 History multivitamin 1 tablet PO DAILY 07/04/23 08/06/23 History omega 0-enu-nmo-fish oil 1,000 mg 2 cap PO DAILY 07/04/23 08/06/23 History (120 mg-180 mg) capsule (Fish Oil) Allergies Allergy/AdvReac Type Severity Reaction Status Date / Time No Known Allergies Allergy Verified 08/06/23 06:12 Exam Const: General: cooperative, healthy appearing and no acute distress Eyes: General: appearance normal, both eyes and all related structures Resp: Effort & Inspection: normal respiratory effort Cardio: Rate: regular rate Rhythm: regular rhythm GI: Inspection: normal to inspection Assessment and Plan Assessment and plan (1) Right renal mass: Code(s): N28.89 - Other specified disorders of kidney and ureter Status: Acute Assessment and Plan: hand assist laparascopic right nephrectomy, possible nephroureterectomy with resection of right ureteral orifice.
--- NOTE | 2023-08-06 07:17 | WPDHPUPDATE1 ---
History and Physical Update Update Date/Time: 08/06/23 07:17 History and Physical has been reviewed, including an updated exam of the patient. There are NO changes in the patient's condition. Risks, benefits, and alternatives have been discussed and questions answered. Patient agrees to proceed with procedure.
[2023-08-06] MEDS: ceFAZolin 2 GM/D5W 50 ML 2 GM/50 ML BAG IVPB (07:28)
[2023-08-06] MEDS: BUPivacaine HCL 0.5% 10 ML AMP 20 ML INFILTRATE (08:22)
--- NOTE | 2023-08-06 09:58 | W.PM.PROC2 ---
Procedure Note - Detailed Date of Procedure 08/06/23 Pre-op Diagnosis Rt Renal Mass Post-op Diagnosis Same Procedure Performed Hand assisted laparoscopic right nephro ureterectomy Surgeon Mike Russell MD Anesthesia General Description of Procedure Patient is taken to the operative suite correctly identified. Once anesthesia was obtained Lott catheter was placed. He was placed in decubitus position right side up. He was correctly identified. A incision was made right side just lateral to the umbilicus. This was carried down to this rectus fascia. Rectus fascia was incised. Peritoneal cavity was entered. Hand GelPort was placed. Working ports were placed in appropriate locations. At the was insufflated to 15 mmHg pressure. At this point the white line of Toldt was then incised. The duodenum was Kocherized. The right ureter and gonadal vein were then isolated. The gonadal vein was spared. He was noted to anterior inferior to the right renal vein on the vena cava. The right ureter was dissected up. The psoas muscle was seen. The kidney was then mobilized posteriorly. Renal vein was isolated. The artery was immediately posterior to it. I could not separate it out enough to place clips separately. I thus placed the endovascular DYLLAN stapler across the pedicle. Once this was performed the stump of the artery was visualized and 3 clips were placed on it. There was good hemostasis. Adrenal gland was spared. The ureter was transected in the proximal ureter after clips were placed. Specimen was then removed and sent to pathology for frozen as there was some question whether this was a transitional cell cancer versus a adenocarcinoma. During the waiting. I dissected the ureter down to the bladder. Clips were placed in a was transected and sent as a separate specimen. The most distal end of the ureter had 1 clip on it. At this point the frozen section came back and this was not a transitional cell carcinoma. This then completed the procedure. All lap count needle count sponge counts were correct. Some Surgicel was placed over the adrenal bed and pedicle area. The peritoneum was closed using 3-0 chromic in a running fashion. Rectus fascia was closed using 0 double-looped Prolene. Subcuticular stitches were then placed. Incisions were anesthetized 1% lidocaine. Patient tolerated procedure well without any complications was taken recovery stable condition. Estimated Blood Loss 25 Drains No Packing No Pathology Yes Complications No immediate complications Condition Stable Disposition PACU
[2023-08-06] MEDS: LACTATED RINGERS 1,000 ML 100 ML IV CONT (10:16)
[2023-08-06] MEDS: fentaNYL CITRATE INJ (*CRX) 100 MCG/2 ML VIAL 25 MCG IV PUSH ×7 (10:39→11:26)
[2023-08-06] MEDS: ACETAMINOPHEN 500 MG TABLET 1000 MG PO (11:14)
[2023-08-06] MEDS: ONDANSETRON INJ 4 MG/2 ML VIAL IV PUSH ×2 (12:04→20:52)
[2023-08-06] MEDS: DEXTROSE 5%/LACTATED RINGERS 1,000 ML 150 ML IV CONT ×2 (12:04→17:29)
[2023-08-06] MEDS: HYDROmorphone HCL INJ (*CRX) 1 MG/ML SYR 0.5 MG IV PUSH ×2 (15:26→20:41)
[2023-08-06] MEDS: ceFAZolin 1 GM/NS 50 ML 1 GM/50 ML BAG IVPB (17:28)
[2023-08-06] MEDS: DOCUSATE SODIUM 100 MG CAPSULE PO (17:29)
[2023-08-06] MEDS: FAMOTIDINE 20 MG/2 ML VIAL IV PUSH (20:41)
[2023-08-06] MEDS: ATORVASTATIN 10 MG TABLET PO (20:41)
[2023-08-07 00:04] VITALS: BP 130/58; PULSE 72; RESP 18; TEMP 36.6; O2SAT 98
[2023-08-07] MEDS: DEXTROSE 5%/LACTATED RINGERS 1,000 ML 150 ML IV CONT ×2 (00:21→05:52)
[2023-08-07] MEDS: ceFAZolin 1 GM/NS 50 ML 1 GM/50 ML BAG IVPB ×2 (00:22→05:52)
[2023-08-07 05:13] VITALS: BP 118/69; PULSE 65; RESP 18; TEMP 36.7; O2SAT 99
[2023-08-07 06:20] LABS: Basophils Percent Auto 0.2 % (0.2-1.2); Hematocrit 37.8 % (42.0-52.0); Hemoglobin 12.4 g/dL (14.0-18.0); Immature Granulocyte Absolute 0.05 K/mm3 (0.00-0.031); Immature Granulocyte Percent A 0.5 % (0-0.5); Lymphocytes Absolute Auto 1.08 K/mm3 (0.9-3.2); Lymphocytes Percent Auto 10.1 % (18.3-44.2); Mean Corpuscular HGB Conc 32.8 g/dl (32-36); Mean Corpuscular Hemoglobin 30.5 pg (26-34); Mean Corpuscular Volume 92.9 fl (80-100); Mean Platelet Volume 10.5 fl (7.4-10.4); Monocytes Absolute Auto 1.1 K/mm3 (0.1-0.6); Monocytes Percent Auto 10.5 % (2.6-8.5); Neutrophils Absolute Auto 8.4 K/mm3 (1.3-6.7); Neutrophils Percent Auto 78.7 % (45.5-73.1); Platelet Count Result 167 k/mm3 (150-375); Red Blood Count 4.07 M/mm3 (4.6-6.20); Red Cell Distribution Width 12.2 % (11.5-14.5); White Blood Count 10.7 K/mm3 (4.5-10.0)
[2023-08-07 06:38] LABS: Anion Gap 9 mmol/L (8-16); Blood Urea Nitrogen 16 mg/dL (9-20); Calcium 8.5 mg/dL (8.4-10.2); Carbon Dioxide 24 mmol/L (22-30); Chloride 102 mmol/L (98-107); Estimated CRCL calculation 38 ml/min; Estimated Glomerular Filt Rate 40; Glucose 157 mg/dL (65-110); Potassium 4.6 mmol/L (3.4-5.0); Sodium 135 mmol/L (137-145)
[2023-08-07] MEDS: LEVOTHYROXINE SODIUM 50 MCG TABLET PO (08:28)
[2023-08-07] MEDS: DOCUSATE SODIUM 100 MG CAPSULE PO (08:28)
[2023-08-07] MEDS: FAMOTIDINE 20 MG/2 ML VIAL IV PUSH (08:29)
--- NOTE | 2023-08-07 13:55 | WPDANESPN ---
Anes - Prog Note Post-Op Date/Time: 08/07/23 13:55 Cardiovascular status: normal Respiratory status: normal Airway patency: baseline Mental status: baseline Post-Op hydration status: normal Vital Signs: Last Vital Signs Temp 98.1 F 08/07/23 05:13 Pulse 65 08/07/23 05:13 Resp 18 08/07/23 05:13 BP 118/69 08/07/23 05:13 Pulse Ox 99 08/07/23 05:13 O2 Del Method Room Air 08/06/23 11:15 O2 Flow Rate 8 08/06/23 10:30 Pain Score (VAS): 0/10 I/O: Intake & Output 08/06/23 08/07/23 08/07/23 23:59 07:59 15:59 Intake Total 1350 2250 Output Total 850 Balance 1350 1400 Laboratory Tests 08/07/23 05:57 08/07/23 05:57 08/07/23 05:57 WBC 10.7 H RBC 4.07 L Hgb 12.4 L D Hct 37.8 L MCV 92.9 MCH 30.5 MCHC 32.8 RDW 12.2 Plt Count 167 MPV 10.5 H Immature Gran % (Auto) 0.5 Neut % (Auto) 78.7 H Lymph % (Auto) 10.1 L [place] % (Auto) 10.5 H Eos % (Auto) 0.0 Baso % (Auto) 0.2 Lymph # (Auto) 1.08 [place] # (Auto) 1.1 H Eos # (Auto) 0.0 Baso # (Auto) 0.0 Abs Immat Gran (auto) 0.05 H Absolute Neuts (auto) 8.4 H Absolute Nucleated RBC 0.0 Nucleated RBC % 0.0 Sodium 135 L Potassium 4.6 Chloride 102 Carbon Dioxide 24 Anion Gap 9 BUN 16 Creatinine 1.70 H Estim Creat Clear Calc 38 Estimated GFR 40 L Glucose 157 H Calcium 8.5 Post-procedural complaints: none Patient Feedback: Patient satisfied with anesthetic care.
--- NOTE | 2023-08-07 14:06 | WPDUROPN2 ---
Progress Note: A&P Assessment and Plan (1) Right renal mass: Code(s): N28.89 - Other specified disorders of kidney and ureter Status: Acute Assessment and Plan: Doing well. Remove becker, increase ambulation. Can discharge later today or in am . Follow up in 2-3 weeks. Subjective Subjective Date/Time Seen: 08/07/23 14:06 Post Op day: 1 (Corinne right nephroureterectomy) Principal diagnosis: right renal mass Interval history: Doing extremely well post op day 1. creatinine slightly increased to 1.7 Review of Systems Review of Systems: All systems reviewed & are unremarkable except as noted in HPI and below Exam Const: General: cooperative, comfortable and no acute distress Resp: Effort & Inspection: normal respiratory effort Cardio: Rate: regular rate Rhythm: regular rhythm GI: Inspection: normal to inspection Objective Data Vital Signs Vital Signs: Vital Signs - 24 hr 08/06/23 14:26 08/06/23 21:09 08/07/23 00:04 Temperature 36.4 C L 36.4 C L 36.6 C Pulse Rate 76 77 72 Respiratory Rate 14 16 18 Blood Pressure 134/62 124/59 L 130/58 L Pulse Oximetry 96 95 98 08/07/23 05:13 Temperature 36.7 C Pulse Rate 65 Respiratory Rate 18 Blood Pressure 118/69 Pulse Oximetry 99 Intake/Output Intake/Output: Intake & Output 08/04/23 08/05/23 08/06/23 08/07/23 23:59 23:59 23:59 23:59 Intake Total 1950 2250 Output Total 65 850 Balance 1885 1400 Meds/Results Medications: Active Medications Generic Name Dose Route Start Last Admin Trade Name Freq PRN Reason Stop Dose Admin Hydrocodone Bitart/Acetaminophen 1 tab 08/07/23 05:00 Hydrocodone/Acetaminophen (*Crx) 5-325 Mg Tablet PO Q4H PRN Pain Rated 1-3 Hydrocodone Bitart/Acetaminophen 2 tab 08/07/23 05:00 Hydrocodone/Acetaminophen (*Crx) 5-325 Mg Tablet PO Q4H PRN Pain Rated 4-6 Atorvastatin Calcium 10 mg 08/06/23 21:00 08/06/23 20:41 Atorvastatin 10 Mg Tablet PO 10 mg HS ANASTASIA Administration Docusate Sodium 100 mg 08/06/23 17:00 08/07/23 08:28 Docusate Sodium 100 Mg Capsule PO 100 mg BID ANASTASIA Administration Famotidine 20 mg 08/06/23 21:00 08/07/23 08:29 Famotidine 20 Mg/2 Ml Vial IV PUSH 08/08/23 09:01 20 mg Q12HR ANASTASIA Administration Hydromorphone HCl 0.5 mg 08/06/23 11:28 08/06/23 20:41 Hydromorphone Hcl Inj (*Crx) 1 Mg/Ml Syr IV PUSH 0.5 mg Q4H PRN Administration Pain Rated 7-10 Dextrose/Lactated Ringer's 1,000 mls @ 150 mls/hr 08/06/23 11:28 08/07/23 05:52 Dextrose 5%/Lactated Ringers IV CONT 150 mls/hr .Q6H40M ANASTASIA Administration Levothyroxine Sodium 50 mcg 08/07/23 09:00 08/07/23 08:28 Levothyroxine Sodium 50 Mcg Tablet PO 50 mcg DAILY@0630 ANASTASIA Administration Naloxone HCl 0.1 mg 08/06/23 11:28 Naloxone Hcl 0.4 Mg/Ml Vial IV PUSH Q2M PRN Opiate Reversal Ondansetron HCl 4 mg 08/06/23 11:28 08/06/23 20:52 Ondansetron Inj 4 Mg/2 Ml Vial IV PUSH 4 mg Q6H PRN Administration Nausea And Vomiting Promethazine HCl 25 mg 08/06/23 11:28 Promethazine Hcl 25 Mg/Ml Ampul IM Q6H PRN Nausea And Vomiting Labs Labs: Laboratory Results - last 24 hr 08/07/23 05:57 WBC 10.7 H RBC 4.07 L Hgb 12.4 L D Hct 37.8 L MCV 92.9 MCH 30.5 MCHC 32.8 RDW 12.2 Plt Count 167 MPV 10.5 H Immature Gran % (Auto) 0.5 Neut % (Auto) 78.7 H Lymph % (Auto) 10.1 L [place] % (Auto) 10.5 H Eos % (Auto) 0.0 Baso % (Auto) 0.2 Lymph # (Auto) 1.08 [place] # (Auto) 1.1 H Eos # (Auto) 0.0 Baso # (Auto) 0.0 Abs Immat Gran (auto) 0.05 H Absolute Neuts (auto) 8.4 H Absolute Nucleated RBC 0.0 Nucleated RBC % 0.0 Sodium 135 L Potassium 4.6 Chloride 102 Carbon Dioxide 24 Anion Gap 9 BUN 16 Creatinine 1.70 H Estim Creat Clear Calc 38 Estimated GFR 40 L Glucose 157 H Calcium 8.5
--- NOTE | 2023-08-07 14:10 | P.DS_ITS ---
DS: Admitting Diagnosis Discharge Date 08/07/23 Admitting Diagnosis right renal mass DS: Discharge Diagnosis Discharge Diagnosis (1) Right renal mass: Code(s): N28.89 - Other specified disorders of kidney and ureter Status: Acute DS: Summary Hospital Course Hospital Course: Uneventful FRANCISCO right nephroureterectomy. Did well post op. Discharge home with follow up in 2-3 weeks Time Spent with Patient Time attestation: Total time spent providing and/or coordinating discharge services: DS: Data Data Completed and Pending Pending studies at discharge: Pending at discharge 08/06/23 09:12 Surgical [PTH] Routine 08/06/23 09:18 Surgical [PTH] Routine Labs on day of discharge: Labs from last 24 hours 08/07/23 05:57 WBC 10.7 H RBC 4.07 L Hgb 12.4 L D Hct 37.8 L MCV 92.9 MCH 30.5 MCHC 32.8 RDW 12.2 Plt Count 167 MPV 10.5 H Immature Gran % (Auto) 0.5 Neut % (Auto) 78.7 H Lymph % (Auto) 10.1 L [place] % (Auto) 10.5 H Eos % (Auto) 0.0 Baso % (Auto) 0.2 Lymph # (Auto) 1.08 [place] # (Auto) 1.1 H Eos # (Auto) 0.0 Baso # (Auto) 0.0 Abs Immat Gran (auto) 0.05 H Absolute Neuts (auto) 8.4 H Absolute Nucleated RBC 0.0 Nucleated RBC % 0.0 Sodium 135 L Potassium 4.6 Chloride 102 Carbon Dioxide 24 Anion Gap 9 BUN 16 Creatinine 1.70 H Estim Creat Clear Calc 38 Estimated GFR 40 L Glucose 157 H Calcium 8.5 Discharge Plan Discharge Attending physician on discharge: Mike Russell Discharging Clinician: Mike Russell Patient Disposition: Home, Self-Care Activity: may shower Diet: as tolerated Wound Care Instructions: incision open to air Discharge Instructions: Care Coordination: Patient to have [facility] for PT/OT eval and treat, and intermediate. They will contact you to schedule their first visit; their phone number is [phone]. RN Please fax discharge instructions to [phone]. Patient Instructions: Antibiotic Form Stand Alone Forms: General Discharge Information Follow-up/Referrals: Mike Russell MD [Physician] - (follow up in 2-3 weeks. call for appt) Discharge Medications: Continued atorvastatin 10 mg tablet 10 mg PO HS levothyroxine 50 mcg tablet 50 mcg PO DAILY multivitamin [Multi-Vitamin] Tablet 1 tablet PO DAILY docusate sodium 250 mg Capsule 250 mg PO EVERY OTHER DAY calcium citrate-vitamin D3 [Calcium Citrate + D] 315 mg-5 mcg (200 unit) Tablet 1 tablet PO DAILY ferrous sulfate 27 mg iron Tablet 27 mg PO DAILY omega 3-nhz-xnr-fish oil [Fish Oil] 1,000 mg (120 mg-180 mg) Capsule 2 cap PO DAILY [facility] 40-10-5-3.3 mg Tablet 1 tablet PO DAILY Date of admission: 08/06/23 11:28 Primary Care Provider: MariaelenaMindi Admitting Provider: Mike Russell Attending physician on admission: Mike Russell Condition: Stable
--- NOTE | 2023-08-07 14:49 | PC.NURSE ---
Pt voided clear, yellow urine x2 without difficulty after catheter removed. Ambulated per hallway with SBA. Offers no complaints of pain or nausea.
== END 2023-08-07 15:20 | disposition home health service (06) | DRG 658 ==
LOC: ANH3MEDSUR 11:43
PROVIDERS: Admitting Provider Urology; PCP Physician Assistant; Visit Provider Urology
PROC: 0TT04ZZ Resection of Right Kidney, Percutaneous Endoscopic Approach (ICD-10-PCS; CPT 50548; principal; 2023-08-06 07:30)
DX: C64.1 Malignant neoplasm of right kidney, except renal pelvis (principal); E78.5 Hyperlipidemia, unspecified; E03.9 Hypothyroidism, unspecified; Z87.891 Personal history of nicotine dependence
CPT/HCPCS: 36415; 80048; 85025; 88305; 88307; 88331; 88341; 88342; A9270; J0690; J1100; J1170; J2250; J2371; J2405; J2704; J3010; J7030; J7120; J7121

== ENCOUNTER 2023-11-18 08:45 | Outpatient (CLI) | payer MEDICARE, SELFPAY ==
--- NOTE | ~2023-11-18 | CT_ITS ---
EXAMINATION: CT abdomen pelvis w con DATE: 11/18/2023 09:31 INDICATION: Malignant neoplasm of the right kidney TECHNIQUE: Computed tomography (CT) of the abdomen and pelvis was performed with 100 mL Omnipaque-350 intravenous contrast. Automated exposure control and iterative reconstruction technique were employe d. The dose-length product was 560.44 mGy-cm. COMPARISON: 06/25/2023 FINDINGS: Ossified right middle lobe nodule consistent with old granulomatous disease. Heart size is normal. No pericardial or pleural effusion. There are multiple hepatic cysts the largest a 2.9 cm complex cyst with thin internal septations in the caudal right hepatic lobe. Gallbladder, spleen, pancreas and suni ateral adrenal glands are normal. A few small low-attenuation cysts in the left kidney the largest at the upper pole measuring 9 mm . Right kidney is surgically absent with right renal artery and vein a few surgical clips at the right renal fossa. No abnormal soft tissue density to suggest residual/loc ally recurrent disease. Bowels including the appendix are normal. Bladder is normal. Prostatomegaly m easuring 4.6 x 3.7 cm . No free intraperitoneal gas or fluid. No pathologically enlarged abdominal or pelvic lymphadenopathy. No interval change. Likely benign 1.8 cm rim calcified lesion in the posteri or right innominate bone most likely a bone infarct or less likely enchondroma. There are few more rios btle lucent lesions in the lumbar spine and a 1.5 cm lucent lesion at the left posterior iliac spine. Small bilateral fat-containing inguinal hernias. Postoperative scarring along the right paramedial a bdominal wall. IMPRESSION: 1. Status post interval right nephrectomy with no evident residual, locally recurrent or soft tissue metastatic disease. 2. A few subtle relatively lucent lesions in the lumbar spine in the left posterior iliac spine which could represent combination of spotty osteopenia and hemangiomas although lytic metastatic disease c annot be excluded. Bone scan can be insensitive for lytic metastases and would consider further evalu ation with pre and postcontrast MRI 3. Prostatomegaly. Reviewed, dictated and finalized at location A. R ARTIST IMPRESSION: 1. Status post interval right nephrectomy with no evident residual, locally rec urrent or soft tissue metastatic disease. 2. A few subtle relatively lucent lesions in the lumbar spine in the left poste rior iliac spine which could represent combination of spotty osteopenia and hem angiomas although lytic metastatic disease cannot be excluded. Bone scan can be insensitive for lytic metastases and would consider further evaluation with pr e and postcontrast MRI 3. Prostatomegaly.
--- NOTE | ~2023-11-18 | XR_ITS ---
EXAMINATION: XR chest 2V DATE: 11/18/2023 09:09 INDICATION: Malignant neoplasm of right kidney. TECHNIQUE: Frontal and lateral views of the chest were obtained. COMPARISON: Chest view 08/23/2021, CT abdomen and pelvis 11/18/2023 FINDINGS: A calcified right lung nodule and calcified right hilar lymph nodes are consistent with old granulomatous disease. No pleural effusion or pneumothorax. The heart size is normal. IMPRESSION: 1. No acute cardiopulmonary disease. Reviewed, dictated and finalized at location E. S INCENTIVE ANALYST
[2023-11-18 09:15] LABS: Estimated Glomerular Filt Rate 33
== END 2023-11-18 08:46 | disposition home or self-care (01) ==
LOC: ANHIMG 08:50
PROVIDERS: PCP Physician Assistant; Visit Provider Urology
DX: C64.1 Malignant neoplasm of right kidney, except renal pelvis (principal); N40.0 Benign prostatic hyperplasia without lower urinary tract symptoms
CPT/HCPCS: 71046; 74177; Q9967

== ENCOUNTER 2023-12-03 12:28 | Outpatient (CLI) | payer MEDICARE, SELFPAY ==
--- NOTE | ~2023-12-03 | MR_ITS ---
MRI of the pelvis CLINICAL HISTORY: Malignant neoplasm right kidney, indeterminate osseous lesions on CT TECHNIQUE: Coronal T1-weighted and T2 fat-sat images, sagittal T1-weighted and T2 fat-sat images, and axial T1-weighted and T2 fat-sat images were performed. Following intravenous administration of 16 c c MultiHance gadolinium, T1-weighted fat-sat imaging was performed in the axial and coronal planes. FINDINGS: There is mildly heterogeneous marrow signal the pelvic bones and visualized lower lumbar sp ine, compatible with marrow conversion. No suspicious osseous lesion identified. Bone marrow signals the proximal femora are unremarkable. No fracture or suspicious bone marrow edema seen. There is prob able mild diffuse chondral malacia both hip joints, without significant joint effusion. Bilateral SI joints are intact. Visualized musculature about the pelvis is unremarkable. No muscle atrophy or edema seen. No soft tis sofia mass or fluid collection evident. Joints tendons are intact. IMPRESSION: No suspicious osseous lesion identified. Reviewed, dictated and finalized at [facility].
--- NOTE | ~2023-12-03 | MR_ITS ---
MRI of the lumbar spine Clinical History: Renal neoplasm Technique: Axial T2-weighted images, and sagittal T1-weighted, T2-weighted, and T2 fat-sat images wer e acquired. Following intravenous administration of 16 cc MultiHance gadolinium, T1-weighted fat-sat imaging was performed in the axial and sagittal planes. Findings: There is no fracture or subluxation of the lumbar spine. Vertebral bodies maintain normal h eight and alignment. No there are probable intraosseous hemangiomas at the L1 and L3 vertebral bodies . There is a hyperintense lesion in the right iliac bone seen only in the axial T1 postcontrast image s, indeterminate.. At L1-L2, there is no disc bulge or herniation. There is moderate facet arthropathy. There is minimal congenital canal stenosis. There is mild to moderate bilateral neural foraminal narrowing. At L2-L3, there is minimal disc bulge and moderate facet arthropathy. There is mild congenital canal stenosis. Bilateral neural foramina are preserved. At L3-L4, disc bulge and severe facet arthropathy contribute to severe spinal canal stenosis/thecal s ac compression. There is mild bilateral neural foraminal narrowing. At L4-L5, disc bulge and severe facet arthropathy result in severe spinal canal stenosis/thecal sac c ompression. There is moderate to severe bilateral neural foraminal narrowing. At L5-S1, there is minimal disc bulge with severe facet arthropathy. No central canal stenosis or def inite neural foraminal narrowing. Paravertebral soft tissues are unremarkable. Impression: Indeterminate bony lesion of the right iliac bone seen only on axial postcontrast images. Severe degenerative spondylosis and lumbar spine, as detailed above. Reviewed, dictated and finalized at location . Impression: Indeterminate bony lesion of the right iliac bone seen only on axial postcontra st images. Severe degenerative spondylosis and lumbar spine, as detailed above.
== END 2023-12-03 12:29 | disposition home or self-care (01) ==
LOC: ANHIMG 12:28
PROVIDERS: PCP Physician Assistant; Visit Provider Urology
DX: C64.1 Malignant neoplasm of right kidney, except renal pelvis (principal); M47.896 Other spondylosis, lumbar region
CPT/HCPCS: 72158; 72197; A9577

== ENCOUNTER 2024-06-09 07:47 | Outpatient (CLI) | payer MEDICARE, SELFPAY ==
--- NOTE | ~2024-06-09 | XR_ITS ---
Clinical Indication: Renal cell carcinoma PA and lateral views of the chest: Comparison: 11/18/2023 Findings: Calcified right basilar granuloma noted. The lungs are lower clear, without evidence of foc al consolidation or pleural effusion. Cardiomediastinal silhouette is within normal limits. Bones an d soft tissues are unremarkable. Impression: No significant abnormality. Reviewed, dictated and finalized at location . Impression: No significant abnormality.
--- NOTE | ~2024-06-09 | CT_ITS ---
CT abdomen pelvis wo/w con Ordering provider: Mike Russell MD History: 69 years Male with . MALIGNANT NEOPLASM OF RIGHT KIDNEY,EXCEPT RENAL PELVIS . Comparison: None. Technique: CT abdomen and pelvis with IV and without oral contrast. Automated exposure control and it erative reconstruction technique were employed. The dose-length product was 961.16 mGy-cm. 100 mL Omn ipaque 350 was given IV.I Findings: VISUALIZED LOWER CHEST: Normal. UPPER ABDOMINAL ORGANS: Liver: Hypodensity in the right lobe of the liver segment #5 measuring 2.8 x 1.4 cm. Hypodensity seen in the left lobe of the liver measuring 1.9 cm. Follow-up advised. Other smaller hypodensities are s een in both lobes. Gallbladder: Normal. Spleen: Normal. Stomach/duodenum: Small sliding hiatus hernia. Pancreas: Normal. Adrenals: Normal. Kidneys: Status post right nephrectomy. Small cysts seen in the left kidney mid pole. Otherwise, The left kidney is unremarkable. PELVIC ORGANS: The bladder shows slightly thickened wall. Evaluation for cystitis advised. Prostatic calcifications. BOWEL AND MESENTERY: Colon: Mild sigmoid diverticulosis without diverticulitis. Normal appendix. Small Bowel: Normal. No obstruction. Peritoneum/mesentery: No free air or free fluid. No mesenteric lymphadenopathy. RETROPERITONEUM: Mild atheromatous disease of the abdominal aorta. No retroperitoneal lymphadenopat hy. MUSCULOSKELETAL: Superficial soft tissues: Bilateral fat containing inguinal hernia. Otherwise, The superficial soft t issues are normal. Bones: Small hypodensity in T9 and posteriorly. Hypodensity also seen in T11. Hypodensity to the left is also seen in L1 possible hypodensity in L3, and L4. Hypodensity also seen in the left iliac bone which may indicate metastatic lesions. Sclerotic lesion seen in the right iliac bone. Hypodensity see n in the sacrum. Further evaluation advised. Age appropriate degenerative changes of the spine. IMPRESSION: 1. Multiple hypodensities in the liver most likely cysts. Metastatic lesions cannot be excluded. 2. Status post right nephrectomy. 3. Multiple hypodensities in the vertebrae with hypodensity in the left iliac bone metastases cannot be excluded. Further evaluation advised. 4. Small sliding hiatus hernia. 5. Bilateral fat containing inguinal areas. Reviewed, dictated and finalized at location A. IMPRESSION: 1. Multiple hypodensities in the liver most likely cysts. Metastatic lesions c annot be excluded. 2. Status post right nephrectomy. 3. Multiple hypodensities in the vertebrae with hypodensity in the left iliac bone metastases cannot be excluded. Further evaluation advised. 4. Small sliding hiatus hernia. 5. Bilateral fat containing inguinal areas.
[2024-06-09 08:21] LABS: Estimated Glomerular Filt Rate 35
== END 2024-06-09 07:48 | disposition home or self-care (01) ==
PROVIDERS: PCP Physician Assistant; Visit Provider Urology
DX: C64.1 Malignant neoplasm of right kidney, except renal pelvis (principal); K44.9 Diaphragmatic hernia without obstruction or gangrene; K40.20 Bilateral inguinal hernia, without obstruction or gangrene, not specified as recurrent
CPT/HCPCS: 71046; 74178; Q9967

== ENCOUNTER 2024-10-05 10:04 | Outpatient (CLI) | payer MEDICARE, SELFPAY ==
--- NOTE | ~2024-10-05 | US_ITS ---
EXAMINATION: US thyroid DATE: 10/05/2024 10:39 INDICATION: Abnormal thyroid function tests. TECHNIQUE: Multiple ultrasound images of the thyroid were obtained. COMPARISON: None. FINDINGS: The right thyroid lobe measures 4.0 x 1.2 x 1.7 cm. The left thyroid lobe measures 3.1 x 1.1 x 1.5 c m. The thyroid demonstrates heterogeneous hypoechogenicity and increased vascularity. In the right t hyroid lobe, there is a 5 mm solid, hypoechoic, wider than tall nodule with smooth margin without ech ogenic foci (TI-RADS TR4). IMPRESSION: 1. Heterogeneous, hypervascular thyroid, consistent with chronic lymphocytic (Ping) thyroiditis. 2. Small thyroid nodule, likely not clinically significant. No follow-up is needed. Reviewed, dictated and finalized at location B. SORTER IMPRESSION: 1. Heterogeneous, hypervascular thyroid, consistent with chronic lymphocytic (H ashimoto) thyroiditis. 2. Small thyroid nodule, likely not clinically significant. No follow-up is nee ded.
== END 2024-10-05 10:05 | disposition home or self-care (01) ==
PROVIDERS: PCP Physician Assistant; Visit Provider Physician Assistant
DX: R94.6 Abnormal results of thyroid function studies (principal); E04.1 Nontoxic single thyroid nodule
CPT/HCPCS: 76536

== ENCOUNTER 2024-10-13 10:13 | Outpatient (CLI) | payer MEDICARE, SELFPAY ==
--- NOTE | ~2024-10-13 | XR_ITS ---
Clinical Indication: Renal cell carcinoma PA and lateral views of the chest: Comparison: 06/09/2024 Findings: Stable calcified right basilar granuloma. The lungs are otherwise clear, without evidence o f focal consolidation or pleural effusion. Cardiomediastinal silhouette is within normal limits. Bon es and soft tissues are unremarkable. Impression: No significant abnormality. Reviewed, dictated and finalized at location . PULLER Impression: No significant abnormality.
--- NOTE | ~2024-10-13 | US_ITS ---
EXAMINATION: US renal BI DATE: 10/13/2024 11:47 INDICATION: Stage IIIB chronic kidney disease TECHNIQUE: Multiple ultrasound grayscale images of the kidneys were obtained. COMPARISON: None. FINDINGS: The right kidney about visualized and is reportedly surgically absent. Shadowing gas-filled bowel in the right renal fossa. Incidentally noted is a 2.5 x 1.7 cm chronic appearing cystic lesion in the ri ght hepatic lobe with lobular margins which appears unchanged since CT dated 06/10/2023. The left kidn ey measures 11.5 x 6.1 x 7.6 cm. The kidneys demonstrate normal echogenicity. There is no hydronephro sis in either kidney. No stones identified. There is mild trabeculation of the mucosal surface of th e bladder which may relate to chronic outlet obstruction from the enlarged prostate which exerts mass effect upon the base of the bladder. IMPRESSION: 1. Status post right nephrectomy. Normal left kidney without hydronephrosis. 2. Trabeculated bladder wall likely related to chronic outlet obstruction from the enlarged prostate. Reviewed, dictated and finalized at location A. R TRUCK DRIVER
--- NOTE | ~2024-10-13 | CT_ITS ---
CT of the Abdomen and Pelvis: Indication: Malignancy right kidney Technique: 2.5 mm axial scans were obtained through the abdomen and pelvis prior to and following in travenous administration of 100 cc of Omnipaque 350. Dose reduction technique was used on this scan b y utilizing automated exposure control and iterative reconstruction technique. The dose-length produc t (DLP) was 849.14 mGy-cm. COMPARISON: 06/09/2024 Findings: Scans through the lung bases are unremarkable. Hepatic cysts are present. The spleen, pancreas, gallbladder, adrenals and left kidney are within nor mal limits. Status post right nephrectomy. There are atherosclerotic calcifications of the aorta. No lymphadenopathy. No bowel obstruction or bowel wall thickening. There is no evidence to suggest acute appendicitis. Images through the pelvis were performed. Urinary bladder unremarkable. Prostate gland is enlarged. N o pelvic mass evident. No ascites. Stable benign-appearing lucent lesion with sclerotic margin in the right iliac bone. No suspicious osseous lesion seen. Impression: No evidence of recurrent malignancy or metastatic disease. Status post right nephrectomy. Reviewed, dictated and finalized at [facility]. IRONER HAND Impression: No evidence of recurrent malignancy or metastatic disease. Status post right ne phrectomy.
--- OUTSIDE RECORDS SUMMARY | 2024-10-13 11:06 | XMS_ITS | Encounter Summary ---
Author Organization [facility] Address [address] [place] [address]. [place], [place] [id number] [place] [id number] Care Team Providers Care Traffic Controller Cable Name Role Phone Gonzalo Kidd MD Primary Care Provider cintia Encounter Details Date Type Department Care Team (Latest Contact Info) Description 05/16/2018 Abstract [facility] Medical [facility] Gonzalo Kidd MD Social History Tobacco Use Types Packs/Day Years Used Date Smoking Tobacco: Never Assessed Sex and Gender Information Value Date Recorded Sex Assigned at Male 09/05/2018 8:20 AM PATIENT ESCORT Legal Sex Male 7:57 PM CDT Gender Identity Male 09/05/2018 8:20 AM PATIENT ESCORT Sexual Orientation Straight 09/05/2018 8: 20 AM PATIENT ESCORT documented as of this encounter Plan of Treatment Not on file documented as of this encounter Visit Diagnoses Not on filedocumented in this encounter Care Teams Traffic Controller Cable Relationship Specialty Start Date End Date Gonzalo Kidd MD PCP - General INTERNAL MEDICINE 09/04/18 11/13/22 documented as of this encounter
--- OUTSIDE RECORDS SUMMARY | 2024-10-13 11:06 | XMS_ITS | Patient Health Summary ---
Author Organization [facility] Address [address] [place] [address] Care Team Providers Care Hide And Skin Classer Name Role Phone Unavailable Primary Care Provider Unavailabl e Note from [facility],non-owned Affiliates and Associated Physician Practices is amultiple site organization consisting of ambulatory clinics and hospital sitesin [place], [place], [place] and [place]. This disclosure is being madepursuant to the Care Everywhere program and may not contain all information available regarding this patient. Last updated 18.[facility] Social History Tobacco Use Types Packs/Day Years Used Date Smoking Tobacco: Never Assessed Sex and Gender Information Value Date Recorded Sex Assigned at Not on file Gender Identity Not on file Sexual Orientation Not on file Procedures * SLIDE PREP HISTOLOGY(Performed 08/20/2023) * PATHOLOGY TISSUE(Performed 08/06/2023) Performed for Illness, unspecified Results * SLIDE PREP HISTOLOGY (08/20/2023 2:29 PM [facility]) Client Specimen ID # [id number] 3 2:29 PM [facility] Number of Slides Received 3 3 2:29 PM [facility] Comment Stat-6 unorderable 3 2:29 PM [facility] Slide Prep Complete Testing is technical only and does not require an interpretation of results. 3 2:29 PM [facility] Comment:All histochemical an d/or immunohistochemical results are interpreted with controls that demonstrate appropriate staining reactions before reporting results. Note on use of immunocytochemistry reagents: This test was developed and its performance characteristic determined by [facility], Department of Laboratory Medicine. It has not been cleared or approved by the U.S. Food and Drug Administration (FDA). The FDA has determined that such clearance or approval is not necessary. The test is used for clinical purpose. It should not be regarded as investigational or for research. This laboratory is certified to perform high complexity testing. The performance characteristics of the IHC/TIM assays have been validated on formalin-fixed paraffin embedded tissues only. The assays have not been validated on decalcified tissues. Results should be interpreted with caution. Pathology/Cytolog y ENTIRE KIDNEY / Unknown 08/20/2023 2:22 PM SOUND RECORDING TECHNICIAN Lupe Trinidad MD LAB - PATHOLOGY/CYTO LOGY ORDERABLES [facility] [address] [id number] * PATHOLOGY TISSUE (08/06/2023 2:38 PM SOUND RECORDING TECHNICIAN) Case Report Surgical Pathology Report ? Case: [id number] ? Authorizing Provider: ??Hakeem Cosme MD ?Collected: ? 08/06/2023 02:38 PM ? Ordering Location: ? [facility] ? Received: ?08/13/2023 03:01 PM ? Pathologist: ? Lupe Trinidad MD ? Specimens: ?? A) - Kidney Nephrec Total ? B) - Ureter Resect ? 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 Received for review from [facility], [address] [place] [address] [address], [place] [address] are 28 slides labeled [id number] and Rick Monroy, accompanied by blocks A1-3, A5-7, A9-19 and B1-5 and the outside pathology draft report. Initial intraoperative frozen section evaluation, processing and permanent H&E sections were performed at [facility], and the case was sent to Dr. Leigh Trinidad at [facility] for primary interpretation, at the request of Dr. Abbie Cosme. Histologic sections of the renal mass (part A) show an epithelial neoplasm with predominantly papillary architecture, also with areas of Ejol-Tmtwg-even architecture and with scattered psammomatous calcifications. The tumor cells have predominantly abundant eosinophilic cytoplasm and show prominent nucleoli (WHO grade 3). Immunostains (controls adequate) were performed to further evaluate the tumor cells, which are diffusely reactive for PAX8 and AMACR (P504S), with focal reactivity for napsin-A and patchy mostly non-circumferential reactivity for carbonic anhydrase IX (CAIX). The tumor cells are negative for CK7. The morphologic and immunophenotypic features are those of a renal cell carcinoma. Clear cell renal cell carcinoma is excluded by the morphology and immunophenotype. The differential diagnosis includes type 2 papillary renal cell carcinoma versus Flaco family gene-rearranged renal cell carcinoma (including TFE3-rearranged renal cell carcinoma, formerly known as translocation carcinoma or Xp11.2 translocation carcinoma). Fluorescence in situ hybridization testing for TFE3 gene rearrangement is pending and will be reported in an addendum. Final classification of this renal cell carcinoma and synoptic reporting are deferred to the results of additional testing. The technical portion of the PAX8, AMACR and CK7 stains was performed at [facility] at [facility], [address] [place] [address]. The technical portion of the napsin-A and CAIX stains was performed at [facility], [address] [place] [address]. 08/15/2023 11:14 AM [facility] Clinical History The patient is a 68-year-old man with a right renal mass. Operative procedure: hand-assisted laparoscopic right nephroureterectomy. 08/15/2023 11:14 AM [facility] Materials Received Received are 28 slides and 22 blocks labeled [id number] along with a copy of the outside pathology report. [place] [address]. All original materials are returned to the referring institution, along with a copy of our final report. 08/15/2023 11:14 AM [facility] Pathologist Location at [facility] 08/15/2023 11:14 AM [facility] Disclaimer The performance characteristics of all immunohistochemical and indirect immunofluorescence stains (if any) cited in this report were determined by the Histopathology Laboratory of [facility]. Some of these tests were developed by our own laboratory and have not been cleared or approved by the US Food and Drug Administration. The FDA does not require this test to go through premarket FDA review. These tests are used for clinical purposes. They should not be regarded as investigational or for research. This laboratory is certified under the Clinical Laboratory Improvement Amendments (CLIA) as qualified to perform high complexity clinical laboratory testing. This case has been personally reviewed and interpreted by the attending (teaching) pathologist. 08/15/2023 11:14 AM SOUND RECORDING TECHNICIAN [facility] Embedded Images 08/15/2023 11:14 AM SOUND RECORDING TECHNICIAN [facility] Pathology/Cytology SPECIMEN FROM URETER OBTAINED BY URETERECTOMY / Unknown 08/06/2023 2:38 PM SOUND RECORDING TECHNICIAN 08/13/2023 3:01 PM SOUND RECORDING TECHNICIAN Miscellaneous samples (specimen) SPECIMEN FROM URETER OBTAINED BY URETERECTOMY / Unknown 08/06/2023 2:38 PM SOUND RECORDING TECHNICIAN 08/13/2023 3:01 PM SOUND RECORDING TECHNICIAN Hakeem Cosme MD LAB - PATHOLOGY/CYTO LOGY ORDERABLES Performing Organization Address City/State/[facility] Co de Phone Number [facility] [address] [phone]
--- OUTSIDE RECORDS SUMMARY | 2024-10-13 11:06 | XMS_ITS | Encounter Summary ---
Author Organization [facility] Address [address] [place] [address] Care Team Providers Care Unionmelt Operator Name Role Phone Unavailable Primary Care Provider Unavailabl e Encounter Details Date Type Department Care Team (Late st Contact Info) Description 08/13/2023 Lab Requisition [facility] - Pathology Lab [address] [place] [address] Hakeem Cosme MD [address] [address] [place] [id number] Illness, unspecified Social History Tobacco Use Types Packs/Day Years Used Date Smoking Tobacco: Never Assessed Sex and Gender Information Value Date Recorded Sex Assigned at Not on file Gender Identity Not on file Sexual Orientation Not on file documented as of this encounter Plan of Treatment Not on file documented as of this encounter Procedures Procedure Name Priority Date/Time Associated Diagnosis Comments PATHOLOGY TISSUE Routine 08/06/2023 2:38 PM SHOE TURNER Illness, unspecified documented in this encounter Results * PATHOLOGY TISSUE (08/06/2023 2:38 PM SHOE TURNER) Case Report Surgical Pathology Report ? Case: [id number] ? Authorizing Provider: ??Hakeem Cosme MD ?Collected: ? 08/06/2023 02:38 PM ? Ordering Location: ? [facility] ? Received: ?08/13/2023 03:01 PM ? Pathologist: ? Lupe Trinidad MD ? Specimens: ?? A) - Kidney Nephrec Total ? B) - Ureter Resect ? 08/15/2023 11:14 AM [facility] Final Diagnosis RECEIVED FOR REVIEW FROM [facility], [place], [place] (OSC [id number], 08/06/23) Kidney, right, nephrectomy (A) - Renal [...] No evidence of malignancy 08/15/2023 11:14 AM [facility] Microscopic Description and Comment Microscopic examination substantiates the above diagnosis. Received for review from [facility], [address] [place] [address] [address], [place] [address] are 28 slides labeled [id number] and Rick Monroy, accompanied by blocks A1-3, A5-7, A9-19 and B1-5 and the outside pathology draft report. Initial intraoperative frozen section evaluation, processing and permanent H&E sections were performed at [facility], and the case was sent to Dr. Leigh Trinidad at [facility] for primary interpretation, at the request of Dr. Abbie Cosme. Histologic sections of the renal mass (part A) show an epithelial neoplasm with predominantly papillary architecture, also with areas of Oiac-Jwruo-jrpf architecture and with scattered psammomatous calcifications. The [...] AMACR and CK7 stains was performed at [facility] at [facility], [address] [place] [address]. The technical portion of the napsin-A and CAIX stains was performed at [facility], [address] [place] [address]. 08/15/2023 11:14 AM [facility] Clinical History The patient is a 68-year-old man with a right renal mass. Operative procedure: hand-assisted laparoscopic right nephroureterectomy. 08/15/2023 11:14 AM [facility] Materials Received Received are 28 slides and 22 blocks labeled [id number] along with a copy of the outside pathology report. [place] [address]. All original materials are returned to the referring institution, along with a copy of our final report. 08/15/2023 11:14 AM [facility] Pathologist Location at [facility] 08/15/2023 11:14 AM [facility] Disclaimer The performance characteristics of all immunohistochemical and indirect immunofluorescence stains (if any) cited in this report were determined by the [facility] of [facility]. Some of these tests were developed by [...] the attending (teaching) pathologist. 08/15/2023 11:14 AM [facility] Embedded Images 08/15/2023 11:14 AM [facility] Pathology/Cytology SPECIMEN FROM URETER OBTAINED BY URETERECTOMY / Unknown 08/06/2023 2:38 PM SHOE TURNER 08/13/2023 3:01 PM SHOE TURNER Miscellaneous samples (specimen) SPECIMEN FROM URETER OBTAINED BY URETERECTOMY / Unknown 08/06/2023 2:38 PM SHOE TURNER 08/13/2023 3:01 PM SHOE TURNER Hakeem Cosme MD LAB - PATHOLOGY/CYTO LOGY ORDERABLES Performing Organization Address City/State/[facility] Co de Phone Number [facility] [address] [phone] documented in this encounter Visit Diagnoses Diagnosis Illness, unspecified documented in this encounter
--- OUTSIDE RECORDS SUMMARY | 2024-10-13 11:06 | XMS_ITS | Clinical Summary ---
Author Organization [facility] Address [address] [place] [address] Care Team Providers Care Reel And Rewinder Operator Name Role Phone Unavailable Primary Care Provider Unavailabl e Source Comments [facility],non-owned Affiliates and Associated Physician Practices is amultiple site organization consisting of ambulatory clinics and hospital sitesin [place], [place], [place] and [place]. This disclosure is being madepursuant to the Care Everywhere program and may not contain all information available regarding this patient. Last updated 18.[facility] Social History Tobacco Use Types Packs/Day Years Used Date Smoking Tobacco: Never Assessed Sex and Gender Information Value Date Recorded Sex Assigned at Not on file Gender Identity Not on file Sexual Orientation Not on file Plan of Treatment Health Maintenance Due Date Last Done Comments COLOGUARD (AGES 45-75) - COLON CA SCREENING 1953 COLON MONITORING 1953 COLONOSCOPY - COLON CA SCREENING 1953 CT COLONOGRAPHY - COLON CA SCREENING 1953 Colorectal Cancer Screening 1953 FIT - COLON CA SCREENING 1953 FLEX SIG - COLON CA SCREENING 1953 LIPID TESTING 1953 MEDICARE AWV ? 12 MONTHS 1953 HEPATITIS C SCREENING 05/05/1971 DTAP/TDAP/TD VACCINES (1 - Tdap) 1972 PNEUMOCOCCAL VACCINE 50+ (1 of 1 - PCV) 2003 ZOSTER VACCINE (1 of 2) 2003 COVID-19 VACCINE (3 - 2023- season) 2024 01/24/2021, 12/27/2020 INFLUENZA VACCINE (#1) 2024 , 05/26/2019, 06/20/2018, Additional history exists DEPRESSION SCREENING 09/16/2024 Respiratory Syncytial Virus (RSV) Vaccine Pt: or over 60 yrs (1 - 1-dose 75+ series) 2028 HEPATITIS B VACCINE Aged Out No longe r eligible based on patient's age to complete this topic HIB VACCINE Aged Out No longer eligi ble based on patient's age to complete this topic HPV VACCINE Aged Out No longer eligi ble based on patient's age to complete this topic MENINGOCOCCAL (Group B) VACCINE Aged Out No longer eligible based on patient's age to complete this topic MENINGOCOCCAL VACCINE Aged Out No dori loan eligible based on patient's age to complete this topic
--- OUTSIDE RECORDS SUMMARY | 2024-10-13 11:06 | XMS_ITS | Referral Summary ---
Author Organization [facility] Address [address] [place] [address] Care Team Providers Care Financial Accounting Analyst Name Role Phone Unavailable Primary Care Provider Unavailabl e Source Comments [facility],non-owned Affiliates and Associated Physician Practices is amultiple site organization consisting of ambulatory clinics and hospital sitesin [place], [place], [place] and [place]. This disclosure is being madepursuant to the Care Everywhere program and may not contain all information available regarding this patient. Last updated 18.[facility] OB[facility] Social History Tobacco Use Types Packs/Day Years Used Date Smoking Tobacco: Never Assessed Sex and Gender Information Value Date Recorded Sex Assigned at Not on file Gender Identity Not on file Sexual Orientation Not on file Plan of Treatment Not on file
--- OUTSIDE RECORDS SUMMARY | 2024-10-13 11:06 | XMS_ITS | Encounter Summary ---
Author Organization [facility] Address [address] [place] [address]. [place], [place] [id number] [place] [id number] Care Team Providers Care Hims Clerk Name Role Phone Gonzalo Kidd MD Primary Care Provider cintia Encounter Details Date Type Department Care Team (Latest Contact Info) Description 06/13/2018 Abstract [facility] Gonzalo Kidd MD Social History Tobacco Use Types Packs/Day Years Used Date Smoking Tobacco: Never Assessed Sex and Gender Information Value Date Recorded Sex Assigned at Male 09/05/2018 8:20 AM RADIO OPERATOR GROUND Legal Sex Male 7:57 PM CDT Gender Identity Male 09/05/2018 8:20 AM RADIO OPERATOR GROUND Sexual Orientation Straight 09/05/2018 8: 20 AM RADIO OPERATOR GROUND documented as of this encounter Plan of Treatment Not on file documented as of this encounter Visit Diagnoses Not on filedocumented in this encounter Care Teams Hims Clerk Relationship Specialty Start Date End Date Gonzalo Kidd MD PCP - General INTERNAL MEDICINE 09/04/18 11/13/22 documented as of this encounter
--- OUTSIDE RECORDS SUMMARY | 2024-10-13 11:06 | XMS_ITS | Encounter Summary ---
Author Organization [facility] Address [address] [place] [address] Care Team Providers Care Operations Asst Name Role Phone Unavailable Primary Care Provider Unavailabl e Encounter Details Date Type Department Care Team (Late st Contact Info) Description 08/20/2023 Lab Requisition [facility] [address] [place] [address] Lupe Trinidad MD [address] [place] [address] Social History Tobacco Use Types Packs/Day Years Used Date Smoking Tobacco: Never Assessed Sex and Gender Information Value Date Recorded Sex Assigned at Not on file Gender Identity Not on file Sexual Orientation Not on file documented as of this encounter Plan of Treatment Not on file documented as of this encounter Procedures Procedure Name Priority Date/Time Associated Diagnosis Comments SLIDE PREP HISTOLOGY Routine 08/20/2023 2:29 PM ALODIZE MACHINE OPERATOR documented in this encounter Results * SLIDE PREP HISTOLOGY (08/20/2023 2:29 PM ALODIZE MACHINE OPERATOR) Client Specimen ID # [id number] 3 2:29 PM [facility] Number of Slides Received 3 3 2:29 PM [facility] Comment Stat-6 unorderable 3 2:29 PM [facility] Slide Prep Complete Testing is technical only and does not require an interpretation of results. 3 2:29 PM [facility] Comment:All histochemical an d/or immunohistochemical results are interpreted with controls that demonstrate appropriate staining reactions before reporting results. Note on use of immunocytochemistry reagents: This test was developed and its performance characteristic determined by [facility], Department of Laboratory Medicine. It has [...] ENTIRE KIDNEY / Unknown 08/20/2023 2:22 PM ALODIZE MACHINE OPERATOR Lupe Trinidad MD LAB - PATHOLOGY/CYTO LOGY ORDERABLES Performing Organization Address City/State/[facility] Co de Phone Number [facility] [address] [place] [address] documented in this encounter Visit Diagnoses Not on filedocumented in this encounter
--- OUTSIDE RECORDS SUMMARY | 2024-10-13 11:07 | XMS_ITS | Data Portability ---
Author Organization [place] [facility], Main Office Address [address] [place] [address] Care Team Providers Care Cat Scan Technologist Name Role Phone SREE NGUYEN Primary Care Provider SREE NGUYEN Referring Provider Assessment No assessment recorded. Plan of Treatment Reminders Order Date Submit Date Provider Last Modified By Organization Details Last Modified Time Details Appointments None recorded. Lab hepatic function panel, serum 2022 023 [facility], [address], [place], [address], 3 05:32:39 BMP, serum or plasma 2022 023 [facility], [address], [place], [address], 3 05:32:38 CBC w/ auto diff 2022 023 [facility], [address], [place], [address], 3 05:32:40 iron + TIBC + ferritin, serum 2022 023 [facility], [address], [place], [address], 3 05:32:34 vitamin B12 + folate, serum or blood 2022 023 [facility], [address], [place], [address], 3 05:32:41 TSH + free T4, serum 2022 023 [facility], [address], [place], [address], 3 05:32:36 lipid panel, serum 2022 023 [facility], [address], [place], [address], 3 05:32:37 Referral None recorded. Procedures None recorded. Surgeries None recorded. Imaging None recorded. Medication Orders None recorded. Patient TargetsNo targets recorded. Patient InstructionsNo instructions recorded. Reason for Referral None Reported. Results Created Date Observation Date Name Description Value Unit Range Abnormal Flag Note LastModifiedBy Organization Detail LastModifiedTime 09/05/2009/06/2023 IRON, TIBC AND MAGDALENA TIN PANEL iron, total 89 mcg/d L 50-180 normal Not Available [address] [address] [place], [address], 09/06/2023 05:32:34 09/05/20 23 09/06/2023 IRON, TIBC AND MAGDALENA TIN PANEL iron binding capacity 234 mcg/d L_(ca lc) 250-42 5 low Not Available [address] [address] [place], [address], 09/06/2023 05:32:34 09/05/20 23 09/06/2023 IRON, TIBC AND MAGDALENA TIN PANEL % saturation 38 %_(ca lc) 20-48 normal Not Available [facility] [address] [address] [place], [address], 09/06/2023 05:32:34 09/05/20 23 09/06/2023 IRON, TIBC AND MAGDALENA TIN PANEL ferritin 365 NG/mL 24-380 normal Not Available [address] [address] [place], [address], 09/06/2023 05:32:34 09/05/20 23 09/06/2023 TSH+F REE T4 TSH 8.17 mIU/L 0.40-4 .50 high Not Available [address], [address], 09/06/2023 05:32:36 09/05/20 23 09/06/2023 TSH+F REE T4 T4, free 1.3 NG/dL 0.8-1. 8 normal Not Available [address], [address], 09/06/2023 05:32:36 09/05/20 23 09/06/2023 LIPID PANEL , STAND DADA cholesterol, total 161 mg/dL <200 normal Not Available [address], [address], 09/06/2023 05:32:37 09/05/20 23 09/06/2023 LIPID PANEL , STAND DADA HDL cholesterol 40 mg/dL > or = 40 normal Not Available [address], [address], 09/06/2023 05:32:37 09/05/20 23 09/06/2023 LIPID PANEL , STAND DADA triglyceride s 149 mg/dL <150 normal Not Available [address], [address], 09/06/2023 05:32:37 09/05/20 23 09/06/2023 LIPID PANEL , STAND DADA LDL-choleste rol 96 mg/dL _(markell c) normal Refer ence range : <100 Jatinder able range <100 mg/dL for prima ry preve ntion ; <70 mg/dL for patie nts with CHD or diabe tic patie nts with > or = 2 CHD risk facto rs. LDL-C is now calcu lated using the Dianne n-Hop kins calcu latgrady n, which is a valid ated novel metho d shaggyi kelly rivera r josy acbrigette than the Fried cosmo equat ion in the estim ation of LDL-C . Dianne krueger SS et al. MARCIE. 2013; 310(1 9): 2061- 2068 (http ://ed ucati on.Rick salGranite Properties. com/f aq/FA Q164) Not Available [address], [address], 09/06/2023 05:32:37 09/05/20 23 09/06/2023 LIPID PANEL , STAND DADA chol/HDLC ratio 4.0 (calc ) <5.0 normal Not Available [address], [address], 09/06/2023 05:32:37 09/05/20 23 09/06/2023 LIPID PANEL , STAND DADA non HDL cholesterol 121 mg/dL _(markell c) <130 normal For patie nts with diabe yesenia plus 1 major ASCVD risk facto r, treat ing to a non-H DL-C goal of <100 mg/dL (LDL- C of <70 mg/dL ) is consi dered a thera peuti c optio n. Not Available [address], [address], 09/06/2023 05:32:37 09/05/20 23 09/06/2023 BASIC METAB OLIC PANEL glucose 93 mg/dL 65-99 normal Fasti ng refer ence inter delfina Not Available [address], [address], 09/06/2023 05:32:38 09/05/20 23 09/06/2023 BASIC METAB OLIC PANEL urea nitrogen (BUN) 14 mg/dL 7-25 normal Not Available [address], [address], 09/06/2023 05:32:38 09/05/20 23 09/06/2023 BASIC METAB OLIC PANEL creatinine 1.62 mg/dL 0.70-1 .28 high Not Available [address] [place], [address], 09/06/2023 05:32:38 09/05/20 23 09/06/2023 BASIC METAB OLIC PANEL eGFR 45 mL/mi n/1.7 3m2 > or = 60 low Not Available [address] [address] [place], [address], 09/06/2023 05:32:38 09/05/20 23 09/06/2023 BASIC METAB OLIC PANEL BUN/creatini ne ratio 9 (calc ) 6-22 normal Not Available [address] [address] [place], [address], 09/06/2023 05:32:38 09/05/20 23 09/06/2023 BASIC METAB OLIC PANEL sodium 140 mmol/ L 135-14 6 normal Not Available [address] [address] [place], [address], 09/06/2023 05:32:38 09/05/20 23 09/06/2023 BASIC METAB OLIC PANEL potassium 4.6 mmol/ L 3.5-5. 3 normal Not Available [address], [address], 09/06/2023 05:32:38 09/05/20 23 09/06/2023 BASIC METAB OLIC PANEL chloride 104 mmol/ L 98-110 normal Not Available [address], [address], 09/06/2023 05:32:38 09/05/20 23 09/06/2023 BASIC METAB OLIC PANEL carbon dioxide 30 mmol/ L 20-32 normal Not Available [address], [address], 09/06/2023 05:32:38 09/05/20 23 09/06/2023 BASIC METAB OLIC PANEL calcium 9.1 mg/dL 8.6-10 .3 normal Not Available [address] [address] [place], [address], 09/06/2023 05:32:38 09/05/20 23 09/06/2023 HEPAT IC FUNCT ION PANEL protein, total 6.7 g/dL 6.1-8. 1 normal Not Available [address] [address] [place], [address], 09/06/2023 05:32:39 09/05/20 23 09/06/2023 HEPAT IC FUNCT ION PANEL albumin 4.3 g/dL 3.6-5. 1 normal Not Available [address] [address] [place], [address], 09/06/2023 05:32:39 09/05/20 23 09/06/2023 HEPAT IC FUNCT ION PANEL globulin 2.4 g/dL_ (calc ) 1.9-3. 7 normal Not Available [address], [address], 09/06/2023 05:32:39 09/05/20 23 09/06/2023 HEPAT IC FUNCT ION PANEL albumin/glob ulin ratio 1.8 (calc ) 1.0-2. 5 normal Not Available [address], [address], 09/06/2023 05:32:39 09/05/20 23 09/06/2023 HEPAT IC FUNCT ION PANEL bilirubin, total 0.6 mg/dL 0.2-1. 2 normal Not Available [address] [address] [place], [address], 09/06/2023 05:32:39 09/05/20 23 09/06/2023 HEPAT IC FUNCT ION PANEL bilirubin, direct 0.1 mg/dL < or = 0.2 normal Not Available [address] [address] [place], [address], 09/06/2023 05:32:39 09/05/20 23 09/06/2023 HEPAT IC FUNCT ION PANEL bilirubin, indirect 0.5 mg/dL _(markell c) 0.2-1. 2 normal Not Available [address], [address], 09/06/2023 05:32:39 09/05/20 23 09/06/2023 HEPAT IC FUNCT ION PANEL alkaline phosphatase 62 U/L 35-144 normal Not Available [facility] [address] [address] [place], [address], 09/06/2023 05:32:39 09/05/20 23 09/06/2023 HEPAT IC FUNCT ION PANEL AST 19 U/L 10-35 normal Not Available [address], [address], 09/06/2023 05:32:39 09/05/20 23 09/06/2023 HEPAT IC FUNCT ION PANEL ALT 17 U/L 9-46 normal Not Available [address] [address] [place], [address], 09/06/2023 05:32:39 09/05/20 23 09/06/2023 CBC (INCL UDES DIFF/ PLT) white blood cell count 5.8 thous and/u L 3.8-10 .8 normal Not Available [address], [address], 09/06/2023 05:32:40 09/05/20 23 09/06/2023 CBC (INCL UDES DIFF/ PLT) red blood cell count 4.48 janell on/uL 4.20-5 .80 normal Not Available [address], [address], 09/06/2023 05:32:40 09/05/20 23 09/06/2023 CBC (INCL UDES DIFF/ PLT) hemoglobin 13.4 g/dL 13.2-1 7.1 normal Not Available [facility] [address], [address], 09/06/2023 05:32:40 09/05/20 23 09/06/2023 CBC (INCL UDES DIFF/ PLT) hematocrit 40.2 % 38.5-5 0.0 normal Not Available [address], [address], 09/06/2023 05:32:40 09/05/20 23 09/06/2023 CBC (INCL UDES DIFF/ PLT) MCV 89.7 fL 80.0-1 00.0 normal Not Available [address], [address], 09/06/2023 05:32:40 09/05/20 23 09/06/2023 CBC (INCL UDES DIFF/ PLT) MCH 29.9 pg 27.0-3 3.0 normal Not Available [address], [address], 09/06/2023 05:32:40 09/05/20 23 09/06/2023 CBC (INCL UDES DIFF/ PLT) MCHC 33.3 g/dL 32.0-3 6.0 normal Not Available [address], [address], 09/06/2023 05:32:40 09/05/20 23 09/06/2023 CBC (INCL UDES DIFF/ PLT) RDW 11.7 % 11.0-1 5.0 normal Not Available [address], [address], 09/06/2023 05:32:40 09/05/20 23 09/06/2023 CBC (INCL UDES DIFF/ PLT) platelet count 213 thous and/u L 140-40 0 normal Not Available [address], [address], 09/06/2023 05:32:40 09/05/20 09/06/2023 CBC (INCL UDES DIFF/ PLT) MPV 11.6 fL 7.5-12 .5 normal Not Available [address], [address], 09/06/2023 05:32:40 09/05/20 23 09/06/2023 CBC (INCL UDES DIFF/ PLT) absolute neutrophils 2709 cells /uL 1500-7 800 normal Not Available [address], [address], 09/06/2023 05:32:40 09/05/20 23 09/06/2023 CBC (INCL UDES DIFF/ PLT) absolute lymphocytes 2013 cells /uL 850-39 00 normal Not Available [address], [address], 09/06/2023 05:32:40 09/05/20 23 09/06/2023 CBC (INCL UDES DIFF/ PLT) absolute monocytes 737 cells /uL 200-95 0 normal Not Available [address], [address], 09/06/2023 05:32:40 09/05/20 23 09/06/2023 CBC (INCL UDES DIFF/ PLT) absolute eosinophils 302 cells /uL 15-500 normal Not Available [address], [address], 09/06/2023 05:32:40 09/05/20 23 09/06/2023 CBC (INCL UDES DIFF/ PLT) absolute basophils 41 cells /uL 0-200 normal Not Available [address], [address], 09/06/2023 05:32:40 09/05/20 23 09/06/2023 CBC (INCL UDES DIFF/ PLT) neutrophils 46.7 % normal Not Available [address], [address], 09/06/2023 05:32:40 09/05/20 23 09/06/2023 CBC (INCL UDES DIFF/ PLT) lymphocytes 34.7 % normal Not Available [address], [address], 09/06/2023 05:32:40 09/05/20 23 09/06/2023 CBC (INCL UDES DIFF/ PLT) monocytes 12.7 % normal Not Available [address], [address], 09/06/2023 05:32:40 09/05/20 23 09/06/2023 CBC (INCL UDES DIFF/ PLT) eosinophils 5.2 % normal Not Available [address], [address], 09/06/2023 05:32:40 09/05/20 23 09/06/2023 CBC (INCL UDES DIFF/ PLT) basophils 0.7 % normal Not Available [address], [address], 09/06/2023 05:32:40 09/05/20 23 09/06/2023 VITAM IN B12/F OLATE , SERUM PANEL vitamin B12 753 pg/mL 200-11 00 normal Not Available [address], [address], 09/06/2023 05:32:41 09/05/20 23 09/06/2023 VITAM IN B12/F OLATE , SERUM PANEL folate, serum 17.4 NG/mL normal Refer ence Range Low: <3.4 Borde rline : 3.4-5 .4 Paulette l: >5.4 Not Available [address], [address], 09/06/2023 05:32:41 04/14/20 21 04/17/2021 XR, hip + pelvi s, unila teral No observ ation record ed. [id number] [facility] [place] [address], [place], [address], 11/14/2022 23:12:35 04/14/20 21 XR, lumba r spine No observ ation record ed. [id number] [facility] [place] [address], [place], [address], 11/14/2022 23:12:35 08/12/20 23 06/11/2023 imagi ng/di agnos tic resul t No observ ation record ed. [place] [id number] [facility] [address], [place], [address], 08/13/2023 12:26:11 08/13/20 23 06/10/2023 CT, abdom en + pelvi s, w/o contr ast No observ ation record ed. [address], [place], [address], 08/14/2023 15:18:51 Result Notes None recorded. Problems Name Problem SNOMED Code Status Onset Date Resolution Date Notes Provider Name and Address Organization Details Recorded Time Hypothyroidis m 45981609 Active 2022 Not Available [facility] 3 23:11:11 Hyperlipidemi a 37185543 Active 2022 Not Available [facility] 3 23:11:11 Anemia 498858272 Active 2022 MONAE Clarke [address] [facility], [facility] [address], [place], [address] , [facility] 3 11:02:13 Problem Notes None recorded. Procedures Surgical History Date Name Laterality Status Provider Name and Address Organization Details Recorded Time 3 other completed VERONICA Villalta [facility] 09/06/2023 12:49:28 3 cystoscopy completed VERONICA Villalta [employer] [facility] 06/20/2023 12:30:45 excision of bunion completed Not Available [facility] 11/14/2022 23:10:22 Imaging Results Imaging Date Name Status LastModified by [facility]iz [facility] Details LastModified Time 04/17/2021 XR, hip + pelvis, unilateral completed [id number] [facility] [place] [address] [facility] [address], [place], [address], 11/14/2022 23:12:35 04/14/2021 XR, lumbar spine completed [id number] [facility] [place] [address] [facility] [address], [place], [address], 11/14/2022 23:12:35 06/10/2023 CT, abdomen + pelvis, w/o contrast completed [address], [place], [address], 08/14/2023 15:18:51 06/11/2023 imaging/diagnos tic result completed [address], [place], [address], 08/13/2023 12:26:11 Procedure Notes None recorded. Medical Equipment None Reported. Allergies No known drug allergies Medications Name Sig Start Date Stop Date Status Note LastModified by Organization Details LastModified Time atorvastati n 10 mg tablet TAKE 1 TABLET BY MOUTH EVERYDAY AT BEDTIME active Not Available Not Available No t Available meloxicam 15 mg tablet TAKE ONE TABLET BY MOUTH ONCE DAILY AFTER MEALS NEEDED FOR ARTHRITIC PAIN 09/04 completed Not Available Not Available Not Available ciprofloxac in 500 mg tablet TAKE 1 TABLET BY MOUTH TWICE A DAY 09/04 completed Not Available Not Available Not Available sulfamethox azole 800 mg-trimetho prim 160 mg tablet TAKE 1 TABLET TWICE A DAY FOR 3 DAYS 09/04 completed Not Available Not Available Not Available tramadol 50 mg tablet TAKE 1 TABLET BY MOUTH EVERY 6 HOURS NEEDED FOR PAIN 09/04 completed Not Available Not Available Not Available levothyroxi ne 75 mcg tablet TAKE 1 TABLET BY MOUTH EVERY DAY IN THE MORNING 10/31 completed Not Available Not Available Not Available meloxicam 7.5 mg tablet PLEASE SEE ATTACHED FOR DETAILED DIRECTION S 10/31 completed Not Available Not Available Not Available levothyroxi ne 50 mcg tablet TAKE 1 TABLET BY MOUTH EVERY DAY IN THE MORNING active Not Available Not Available No t Available methylpredn isolone 4 mg tablets in a dose pack TAKE 6 TABLETS ON DAY 1 DIRECTED ON PACKAGE AND DECREASE BY 1 TAB EACH DAY FOR A TOTAL OF 6 DAYS 06/09 completed Not Available Not Available Not Available docusate sodium 250 mg capsule Take 1 capsule every other day by oral route. active Not Available Not Available No t Available multivitami n active Not Available Not Available Not Available Calcium Citrate + D active Not Available Not Available Not Available pramoxine 1 % topical foam APPLY TOPICALLY THREE TIMES PER DAY NEEDED FOR ITCHING 09/04 completed Not Available Not Available Not Available ferrous sulfate 27 mg iron tablet Take by oral route. active Not Available Not Available No t Available Suprep Bowel Prep Kit 17.5 gram-3.13 gram-1.6 gram oral solution 06/09 completed Not Available Not Available Not Available Algal Gilbert-3 DHA active Not Available Not Available Not Available cartilage-c ollagen-bor -hyalur active Not Available Not Available Not Available Vitals Date Recorded Body mass index (BMI) Body height Body weight Provider Name and Address Organization Details Last Updated DateTime 04/14/2021 28.7 kg/m2 170.18 cm 03928.4 g Not Available [facility] 11/14/2022 23:10:52 Date Recorded Body mass index (BMI) Body height Oxygen saturation Oxygen saturation in Arterial blood by Pulse oximetry Heart rate Respiratory rate Body temperature Body weight Systolic blood pressure Diastolic blood pressure Provider Name and Address Organization Details Last Updated DateTime 28.8 kg/m2 170.18 cm 98 % 98 % 70 /min 16 /min 97.8 [degF] 61346 g 122 mm[Hg] 80 mm[Hg] Not Available [facility] 23:10:52 Date Recorded Body height Provider Name an d Address Organization Details Last Updated DateTime 06/09/2021 170.18 cm Not Available [facility] 3 23:10:52 Date Recorded Body height Body temperature Body mass index (BMI) Body weight Heart rate Oxygen saturation Oxygen saturation in Arterial blood by Pulse oximetry Respiratory rate Systolic blood pressure Diastolic blood pressure Provider Name and Address Organization Details Last Updated DateTime 3 170.18 cm 97.9 [degF] 26.9 kg/m2 48280.8 9 g 84 /min 98 % 98 % 16 /min 112 mm[Hg] 62 mm[Hg] Re Strauss RN [facility] [facility] 3 10:38:12 Date Recorded Systolic blood pressure Diastolic blood pressure Provider Name and Address Organization Details Last Updated DateTime 09/04/2023 110 mm[Hg] 70 mm[Hg] MONAE Clarke [address] [facility], [facility] [address], [place], [address], [place] [employer] [facility] [employer] [facility] 09/04/2023 11:03:00 Social History Question Answer Notes LastModified by Organizat ion Details LastModified Time Tobacco Smoking Status Former Smoker Not Available [facility] 11/14/2022 23:10:11 Do You Have An Advance Directive? Yes [id number] Information not available 11/14/2022 What Is Your Level Of Alcohol Consumption? None Recovering Alcholoic [id number] Information not available 11/14/2022 What Is Your Level Of Caffeine Consumption? Heavy MIGRATION.71150 [id number] Information not available 11/14/2022 In The 14 Days Before Symptom Onset, Have You Had Close Contact With A Laboratory-confir med COVID-19 While That Case Was Ill? No [id number].15109 [id number] Information not available 11/14/2022 In The 14 Days Before Symptom Onset, Have You Had Close Contact With A Person Who Is Under Investigation For COVID-19 While That Person Was Ill? No [id number].[id number] Information not available 11/14/2022 What Type Of Diet Are You Following? REGULAR MIGRATION.96534 84123 Information not available 11/14/2022 Have There Been Any Changes To Your Family Or Social Situation? No MIGRATION.05151 98705 Information not available 11/14/2022 When Did You Quit Smoking? 16+yearssi ncelastcig arette MIGRATION.92538 81387 Information not available 11/14/2022 Are There Any Guns Present In Your Home? No MIGRATION.30725 84307 Information not available 11/14/2022 Do You Use Insect Repellent Routinely? No MIGRATION.66514 81383 Information not available 11/14/2022 Do You Have A Medical Power Of Sand Worker? Yes , Alison MIGRATION.48823 08276 Information not available 11/14/2022 What Is Your Relationship Status? MIGRATION.26319 87609 Information not available 11/14/2022 Do You Use Your Seat Belt Or Car Seat Routinely? Yes MIGRATION.93430 63520 Information not available 11/14/2022 Do You Have Smoke And Carbon Monoxide Detectors In Your Home? Yes MIGRATION.35226 90564 Information not available 11/14/2022 Do You Use Sunscreen Routinely? Yes MIGRATION.58915 11479 Information not available 11/14/2022 Have You Recently Traveled Abroad? No MIGRATION.33460 08504 Information not available 11/14/2022 Do You Have Any Dietary Restrictions? No MIGRATION.64178 57162 Information not available 11/14/2022 Do You Or Have You Ever Used Any Other Forms Of Tobacco Or Nicotine? No MIGRATION.85989 48548 Information not available 11/14/2022 Sex: Unknown Functional Status Question Answer Note LastModified by Organizat ion Details LastModified Time Do you have transportation difficulties? No [id number].[id number] 026 Information not available 11/14/2022 Are you able to walk? YESWOREST MIGRATION.[id number] 026 Information not available 11/14/2022 Do you have difficulty doing errands alone? No MIGRATION.[id number] 026 Information not available 11/14/2022 Are you able to care for yourself? Yes MIGRATION.[id number] 026 Information not available 11/14/2022 Do you have difficulty dressing or bathing? No MIGRATION.[id number] 026 Information not available 11/14/2022 Mental Status None recorded. Family History Relationship Description Onset Age of this Age Resolved Age Notes LastModified by Organization Details LastModified Time Father Myocardial infarction 84 [id number] Not available 11/14/2022 23:10:24 Medical History Condition Response ARTHRITIS Y CANCER: SPECIFY Y DIZZINESS Y HYPOTHYROIDISM Y BOWEL PROBLEMS Y HIGH CHOLESTEROL / HYPERLIPIDEMIA Y Past Encounters Encounter ID Performer Location Encounter Start Date Encounter Closed Date Diagnosis/Indication Diagnosis SNOMED-CT Code Diagnosis ICD10 Code Diagnosis Note [id number] [facility] [address] [place] [address] 04/14/2021 00:00:00 04/14/2021 11:49:11 [id number] [facility] [address] [place] [address] 06/09/2021 00:00:00 06/09/2021 20:56:15 [id number] [facility] [address] [place] [address] 10/31/2022 00:00:00 11/11/2022 23:19:55 [id number] MONAE Clarke [facility] [address] [place] [address] 09/04/2023 10:21:34 09/04/2023 11:05:58 Hypothyroidism 96789075 E03.9 on levothyrox ine 50mcg daily and due for updated TFT panel Hyperlipidemia 19219511 E78.5 on atorvastat in 10mg daily and due for fasting lipid panel History of malignant neoplasm of kidney 269427310 Z85.528 pt is stable and doing well, feeling better post op. Anemia 581647173 D64.9 hx of anemia post op. check updated CBC, iron studies and b12, folate. Long-term drug therapy 868372272 Z79.899 routine LFT and bmp due. Health Concerns Section Related Observation LastModified by Organization Detai ls LastModified Time None Recorded Concern Status LastModified by Organization Details LastModified Time None Recorded Advance Directives Directive Y: Payers Encounter Date Sequence Insurance Name Policy Number Policy Byrd Covered Member ID Byrd Member ID Guarantor Name 09/04/2023 1 [place] Rick Monroy [id number] Rick Monroy 09/04/2023 2 [facility] (MEDICARE SUPPLEMENT) PLAN G Rick Monroy [id number] Rick Monroy Notes Date Note Type Note Provider Name and Address Organization Details Recorded Time 10/31/19 23 text/ht ml HyperlipidemiaReported bypatient.Duration:chronic Control:usually well controlled Current Therapy:currently taking: (atorvastatin 10mg) Compliance:compliant;noncomplian t with diet;does not exercise Complications:no coronary artery disease; no peripheral artery disease; no cardiovascular diseaseHypothyroidismReported bypatient.Quality:not changing Duration:constant Onset/Timing:still present Context/Risk:normal thyroid levels; no history of head or neck radiation during childhood; no history of thyroid disease; no history of hyperthyroidism; no excess iron exposure;history of hypothyroidism Modifying Factors:medication Exerciseno exercise Associated Symptoms:no cold intolerance; no heat intolerance; no weight loss; no weight gain; no double vision; no dry eyes; no hoarseness; no difficulty swallowing; no neck masses; no deepening of the voice; no fast heart rate; no increased blood pressure; no palpitations; no chest pain; no chest tightess or pressure; no constipation; no diarrhea; no vomiting; no decreased appetite; no loose stools; no irregular menstrual periods; no excessive sweating; no joint pain; no numbness; no tingling of the hands or feet; no dry skin; no tremor; no nervousness; no anxiety; no depression; no fatigue; no sleep difficulties; no skin changes; no hair changes Not Available [facility] 11/11/2022 23:19:55 09/04/20 23 text/ht ml Generic HPI TemplateReported bypatient.Notes:pt with renal cell cancer hx with nephrectomy.HyperlipidemiaReport ed bypatient.Notes:on statin therapyHypothyroidismReported bypatient.Notes:on supplement. due for labs MONAE Clarke [address] [facility] [address], [place], [address], [facility] 09/13/2023 13:05:59
--- OUTSIDE RECORDS SUMMARY | 2024-10-13 11:07 | XMS_ITS | Data Portability ---
Author Organization [facility] Address [address] [place] [address] Assessment No assessment recorded. Plan of Treatment Reminders Order Date Submit Date Provider Last Modified By Organization Details Last Modified Time Details Appointments ANY 15 2024 10:00A M MONAE Clarke Not available Not available Not available Lab urinalysi s, dipstick 2023 024 [email or web address] In-Office Order, Internal Use Only DO Not Attach Compendium DO Not Attach Compendium, Do Not Delete/merge, [id number] 12/30/2023 12:20:41 hepatic function panel, serum 2023 024 [facility], [address], [place], [address], 01/22/2024 14:48:35 CBC w/ auto diff 2023 024 [facility], [address], [address], [place], [address], 01/22/2024 14:48:30 BMP, serum or plasma 2023 024 [facility], [address], [address], [place], [address], 01/22/2024 14:48:26 lipid panel, serum 2023 024 [facility], [address], [address], [place], [address], 01/22/2024 14:48:41 TSH + free T4, serum 2023 024 [facility] [address], [address], [place], [address], 01/06/2024 23:02:53 PSA, total, serum or plasma 2023 024 [facility], [address], [place], [address], 07/02/2024 03:36:57 hepatic function panel, serum 2023 024 [facility], [address], [address], [place], [address], 07/02/2024 03:36:53 CBC w/ auto diff 2023 024 [facility], [address], [address], [place], [address], 07/02/2024 03:36:56 BMP, serum or plasma 2023 024 [facility], [address], [address], [place], [address], 07/02/2024 03:36:54 lipid panel, serum 2023 024 [facility], [address], [address], [place], [address], 07/02/2024 03:36:52 TSH + free T4, serum 2023 024 [facility], [address], [address], [place], [address], 07/02/2024 03:36:51 Referral None recorded. Procedures None recorded. Surgeries None recorded. Imaging None recorded. Medication Orders None recorded. Patient TargetsNo targets recorded. Patient Instructions Encounter Date Encounter Id Patient Instructions Last Modified By Organization Details Last Modified Time 06/30/2024 [id number] A healthy lifestyle: care instructions [email or web address] Not available 06/30/2024 11:56:43 Reason for Referral None Reported. Results Created Date Observation Date Name Description Value Unit Range Abnormal Flag Note LastModifiedBy Organization Detail LastModifiedTime 12/30/19 24 12/30/2023 urina lysis , dipst ick Leukocytes Trace Not Available In-Offi ce Order Internal Use Only DO Not Attach Compendium DO Not Attach Compendium, Do Not Delete/merge, 12/30/2023 12:09:18 12/30/19 24 12/30/2023 urina lysis , dipst ick Nitrite negati ve Not Available In-Office Order Internal Use Only DO Not Attach Compendium DO Not Attach Compendium, Do Not Delete/merge, 12/30/2023 12:09:12/30/19 24 12/30/2023 urina lysis , dipst ick Urobilinogen .2 Not Available In-Of fice Order Internal Use Only DO Not Attach Compendium DO Not Attach Compendium, Do Not Delete/merge, 12/30/2023 12:09:18 12/30/19 24 12/30/2023 urina lysis , dipst ick Protein Negati ve Not Available In-Office Order Internal Use Only DO Not Attach Compendium DO Not Attach Compendium, Do Not Delete/merge, 12/30/2023 12:09:18 12/30/19 24 12/30/2023 urina lysis , dipst ick pH 5.5 Not Available In-Office Order Internal Use Only DO Not Attach Compendium DO Not Attach Compendium, Do Not Delete/merge, 12/30/2023 12:09:18 12/30/19 24 12/30/2023 urina lysis , dipst ick Blood Non-He molyze d: Trace Not Available In-Office Order Internal Use Only DO Not Attach Compendium DO Not Attach Compendium, Do Not Delete/merge, 12/30/2023 12:09:18 12/30/19 24 12/30/2023 urina lysis , dipst ick Specific Burton 1.025 Not Available In-Off ice Order Internal Use Only DO Not Attach Compendium DO Not Attach Compendium, Do Not Delete/merge, 12/30/2023 12:09:18 12/30/19 24 12/30/2023 urina lysis , dipst ick Ketone Negati ve Not Available In-Office Order Internal Use Only DO Not Attach Compendium DO Not Attach Compendium, Do Not Delete/merge, 12/30/2023 12:09:18 12/30/19 24 12/30/2023 urina lysis , dipst ick Bilirubin Negati ve Not Available In-Office Order Internal Use Only DO Not Attach Compendium DO Not Attach Compendium, Do Not Delete/merge, 12/30/2023 12:09:18 12/30/19 24 12/30/2023 urina lysis , dipst ick Glucose Negati ve Not Available In-Office Order Internal Use Only DO Not Attach Compendium DO Not Attach Compendium, Do Not Delete/merge, 12/30/2023 12:09:18 12/30/19 24 12/30/2023 urina lysis , dipst ick Appearance Clear Not Available In-Offi ce Order Internal Use Only DO Not Attach Compendium DO Not Attach Compendium, Do Not Delete/merge, 12/30/2023 12:09:18 12/30/19 24 12/30/2023 urina lysis , dipst ick Color Yellow Not Available In-Office Order Internal Use Only DO Not Attach Compendium DO Not Attach Compendium, Do Not Delete/merge, 12/30/2023 12:09:18 07/01/20 24 07/02/2024 TSH+F REE T4 TSH 9.040 uIU/m L 0.450- 4.500 above high normal Not Available [facility] ([facility]) [address] [facility], [place], [address], 07/02/2024 03:36:51 07/01/2007/02/2024 TSH+F REE T4 T4,free(dire ct) 1.48 NG/dL 0.82-1 .77 Not Available [facility] ([facility]) [address], [place], [address], 07/02/2024 03:36:51 07/01/2007/02/2024 LIPID PANEL cholesterol, total 162 mg/dL 100-19 9 Not Available [facility] ([facility]) [address] [place], [address], 07/02/2024 03:36:52 07/01/2007/02/2024 LIPID PANEL triglyceride s 148 mg/dL 0-149 Not Available [facility] ([facility]) [address] [place], [address], 07/02/2024 03:36:52 07/01/2007/02/2024 LIPID PANEL HDL cholesterol 39 mg/dL >39 below low normal Not Available [facility] ([facility]) [address] [place], [address], 07/02/2024 03:36:52 07/01/2007/02/2024 LIPID PANEL VLDL cholesterol markell 26 mg/dL 5-40 Not Available [facility] ([facility]) [address] [place], [address], 07/02/2024 03:36:52 07/01/2007/02/2024 LIPID PANEL LDL chol calc ([facility]) 97 mg/dL 0-99 Not Available [facility] ([facility]) [address] [place], [address], 07/02/2024 03:36:52 07/01/2007/02/2024 HEPAT IC FUNCT ION PANEL (7) protein, total 7.2 g/dL 6.0-8. 5 Not Available [facility] ([facility]) [address] [place], [address], 07/02/2024 03:36:53 07/01/2007/02/2024 HEPAT IC FUNCT ION PANEL (7) albumin 4.6 g/dL 3.8-4. 8 Not Available [facility] ([facility]) [address] [place], [address], 07/02/2024 03:36:53 07/01/2007/02/2024 HEPAT IC FUNCT ION PANEL (7) bilirubin, total 0.6 mg/dL 0.0-1. 2 Not Available [facility] ([facility]) [address] [place], [address], 07/02/2024 03:36:53 07/01/2007/02/2024 HEPAT IC FUNCT ION PANEL (7) bilirubin, direct 0.14 mg/dL 0.00-0 .40 Not Available [facility] ([facility]) [address] [place], [address], 07/02/2024 03:36:53 07/01/2007/02/2024 HEPAT IC FUNCT ION PANEL (7) alkaline phosphatase 65 IU/L 44-121 Not Available [facility] ([facility]) [address] [place], [address], 07/02/2024 03:36:53 07/01/2007/02/2024 HEPAT IC FUNCT ION PANEL (7) AST (SGOT) 24 IU/L 0-40 Not Available [facility] ([facility]) [address] [place], [address], 07/02/2024 03:36:53 07/01/2007/02/2024 HEPAT IC FUNCT ION PANEL (7) ALT (SGPT) 23 IU/L 0-44 Not Available [facility] ([facility]) [address] [place], [address], 07/02/2024 03:36:53 07/01/2007/02/2024 BASIC METAB OLIC PANEL (8) glucose 98 mg/dL 70-99 Not Available [facility] ([facility]) [address] [place], [address], 07/02/2024 03:36:54 07/01/2007/02/2024 BASIC METAB OLIC PANEL (8) BUN 16 mg/dL 8-27 Not Available [facility] ([facility]) [address] [place], [address], 07/02/2024 03:36:54 07/01/20 24 07/02/2024 BASIC METAB OLIC PANEL (8) creatinine 1.73 mg/dL 0.76-1 .27 above high normal Not Available [facility] ([facility]) [address] [place], [address], 07/02/2024 03:36:54 07/01/2007/02/2024 BASIC METAB OLIC PANEL (8) eGFR 42 mL/mi n/1.7 3 >59 below low normal Not Available [facility] ([facility]) [address] [place], [address], 07/02/2024 03:36:54 07/01/2007/02/2024 BASIC METAB OLIC PANEL (8) BUN/creatini ne ratio 9 10-24 below low normal Not Available [facility] ([facility]) [address] [place], [address], 07/02/2024 03:36:54 07/01/20 24 07/02/2024 BASIC METAB OLIC PANEL (8) sodium 139 mmol/ L 134-14 4 Not Available [facility] ([facility]) [address] [place], [address], 07/02/2024 03:36:54 07/01/20 24 07/02/2024 BASIC METAB OLIC PANEL (8) potassium 4.7 mmol/ L 3.5-5. 2 Not Available [facility] ([facility]) [address] [place], [address], 07/02/2024 03:36:54 07/01/20 24 07/02/2024 BASIC METAB OLIC PANEL (8) chloride 103 mmol/ L 96-106 Not Available [facility] ([facility]) [address] [facility], [place], [address], 07/02/2024 03:36:54 07/01/2007/02/2024 BASIC METAB OLIC PANEL (8) carbon dioxide, total 25 mmol/ L 20-29 Not Available [facility] ([facility]) [address] [facility], [place], [address], 07/02/2024 03:36:54 07/01/2007/02/2024 BASIC METAB OLIC PANEL (8) calcium 9.3 mg/dL 8.6-10 .2 Not Available [facility] ([facility]) [address] [facility], [place], [address], 07/02/2024 03:36:54 07/01/20 24 07/01/2024 CBC WITH DIFFE RENTI AL/PL ATELE T WBC 5.7 x10e3 /uL 3.4-10 .8 Not Available [facility] ([facility]) [address] [facility], [place], [address], 07/02/2024 03:36:56 07/01/2007/01/2024 CBC WITH DIFFE RENTI AL/PL ATELE T RBC 4.97 x10e6 /uL 4.14-5 .80 Not Available [facility] ([facility]) [address] [facility], [place], [address], 07/02/2024 03:36:56 07/01/2007/01/2024 CBC WITH DIFFE RENTI AL/PL ATELE T hemoglobin 15.1 g/dL 13.0-1 7.7 Not Available [facility] ([facility]) [address] [facility], [place], [address], 07/02/2024 03:36:56 07/01/20 24 07/01/2024 CBC WITH DIFFE RENTI AL/PL ATELE T hematocrit 46.1 % 37.5-5 1.0 Not Available [facility] ([facility]) [address] [facility], [place], [address], 07/02/2024 03:36:56 07/01/2007/01/2024 CBC WITH DIFFE RENTI AL/PL ATELE T MCV 93 fL 79-97 Not Available [facility] ([facility]) [address] [facility], [place], [address], 07/02/2024 03:36:56 07/01/2007/01/2024 CBC WITH DIFFE RENTI AL/PL ATELE T MCH 30.4 pg 26.6-3 3.0 Not Available [facility] ([facility]) [address] [facility], [place], [address], 07/02/2024 03:36:56 07/01/20 24 07/01/2024 CBC WITH DIFFE RENTI AL/PL ATELE T MCHC 32.8 g/dL 31.5-3 5.7 Not Available [facility] ([facility]) [address] [facility], [place], [address], 07/02/2024 03:36:56 07/01/2007/01/2024 CBC WITH DIFFE RENTI AL/PL ATELE T RDW 11.8 % 11.6-1 5.4 Not Available [facility] ([facility]) [address] [place], [address], 07/02/2024 03:36:56 07/01/2007/01/2024 CBC WITH DIFFE RENTI AL/PL ATELE T platelets 209 x10e3 /uL 150-45 0 Not Available [facility] ([facility]) [address] [place], [address], 07/02/2024 03:36:56 07/01/20 24 07/01/2024 CBC WITH DIFFE RENTI AL/PL ATELE T neutrophils 50 % notest ab. Not Available [facility] ([facility]) [address] [place], [address], 07/02/2024 03:36:56 07/01/2007/01/2024 CBC WITH DIFFE RENTI AL/PL ATELE T lymphs 33 % notest ab. Not Available [facility] ([facility]) [address] [facility], [place], [address], 07/02/2024 03:36:56 07/01/2007/01/2024 CBC WITH DIFFE RENTI AL/PL ATELE T monocytes 11 % notest ab. Not Available [facility] ([facility]) [address] [facility], [place], [address], 07/02/2024 03:36:56 07/01/20 24 07/01/2024 CBC WITH DIFFE RENTI AL/PL ATELE T eos 4 % notest ab. Not Available [facility] ([facility]) [address] [facility], [place], [address], 07/02/2024 03:36:56 07/01/20 24 07/01/2024 CBC WITH DIFFE RENTI AL/PL ATELE T basos 1 % notest ab. Not Available [facility] ([facility]) [address] [facility], [place], [address], 07/02/2024 03:36:56 07/01/20 24 07/01/2024 CBC WITH DIFFE RENTI AL/PL ATELE T neutrophils (absolute) 2.9 x10e3 /uL 1.4-7. 0 Not Available [facility] ([facility]) [address] [facility], [place], [address], 07/02/2024 03:36:56 07/01/20 24 07/01/2024 CBC WITH DIFFE RENTI AL/PL ATELE T lymphs (absolute) 1.9 x10e3 /uL 0.7-3. 1 Not Available [facility] ([facility]) [address] [facility], [place], [address], 07/02/2024 03:36:56 07/01/20 24 07/01/2024 CBC WITH DIFFE RENTI AL/PL ATELE T monocytes(ab solute) 0.6 x10e3 /uL 0.1-0. 9 Not Available [facility] ([facility]) [address] [facility], [place], [address], 07/02/2024 03:36:56 07/01/20 24 07/01/2024 CBC WITH DIFFE RENTI AL/PL ATELE T eos (absolute) 0.2 x10e3 /uL 0.0-0. 4 Not Available [facility] ([facility]) [address] [place], [address], 07/02/2024 03:36:56 07/01/20 24 07/01/2024 CBC WITH DIFFE RENTI AL/PL ATELE T baso (absolute) 0.0 x10e3 /uL 0.0-0. 2 Not Available [facility] ([facility]) [address] [place], [address], 07/02/2024 03:36:56 07/01/20 24 07/01/2024 CBC WITH DIFFE RENTI AL/PL ATELE T immature granulocytes 1 % notest ab. Not Available [facility] ([facility]) [address] [place], [address], 07/02/2024 03:36:56 07/01/20 24 07/01/2024 CBC WITH DIFFE RENTI AL/PL ATELE T immature grans (abs) 0.0 x10e3 /uL 0.0-0. 1 Not Available [facility] ([facility]) [address] [place], [address], 07/02/2024 03:36:56 07/01/20 24 07/02/2024 PROST ATE-S PECIF IC AG prostate specific Ag 1.4 NG/mL 0.0-4. 0 Mavis ECLIA metho dolog y. Accor ding to the Ameri can [employer] g[employer] iatio n, Serum PSA shoul d decre ase and remai n at undet ectab le level s after radic al prost atect nicolas. The AUA defin es bioch emica l recur rence as an initi al PSA value 0.2 ng/mL or great er follo wed by a subse quent confi rmato ry PSA value 0.2 ng/mL or great er. Value s obtai natalie with diffe rent assay metho ds or kits canno t be used inter hogue eably . Resul ts canno t be inter prete d as absol [place] evide nce of the prese nce or absen ce of lilly espinal se. Not Available [facility] ([facility]) [address] [facility], [place], [address], 07/02/2024 03:36:57 12/05/19 24 12/03/2023 MRI, lumba r spine , w/ contr ast No observ ation record ed. [address] [place] [address], [address], 12/31/2023 17:59:17 06/09/20 24 06/09/2024 CT, abdom en + pelvi s, w/ contr ast No observ ation record ed. [address] [facility], [place], [address], 07/18/2024 21:36:55 06/17/20 24 06/09/2024 CT, abdom en + pelvi s, w/wo contr ast No observ ation record ed. [email or web address] [address] [facility], [place], [address], 06/19/2024 13:59:35 10/05/19 25 10/05/2024 US, thyro id No observ ation record ed. [address] [address], [place], [address], 10/07/2024 10:36:44 Result Notes None recorded. Problems Name Problem SNOMED Code Status Onset Date Resolution Date Notes Provider Name and Address Organization Details Recorded Time Hyperlipide kain 89680257 Active 2023 MONAE Clarke Attn: Christiano zarate,[address] [facility], [place], [address], [place] - [facility] 4 09:39:55 Hypothyroid ism 90160361 Active 2023 MONAE Clarke Attn: Accountdao g,[address] [facility] [address], [place], [address], [place] [facility] 4 09:39:56 History of malignant neoplasm of kidney 581877773 Active 2023 MONAE Clarke Attn: Accountdao g,[address] [facility] [address], [place], [address], [facility] - [facility] 4 09:39:57 History of nephrectomy 8697902048627 4 Active 2023 MONAE Clarke Attn: Accountdao g,[address] [facility] [address], [place], [address], [place] [facility] 4 09:40:00 Family history of hemochromat osis 150385223 Active 2023 MONAE Clarke Attn: Accountdao g,[address] [facility] [address], [place], [address], [place] - [facility] 4 09:40:20 Long-term drug therapy Active 2023 MONAE Clarke Attn: Accountdao g,[address] [facility] [address], [place], [address], [place] - [facility] 4 09:40:21 Body mass index 25-29 - overweight 133815296 Active 2023 Susanna Kelly MA [facility], [place] - [facility] 4 11:28:00 Problem Notes None recorded. Procedures Surgical History Date Name Laterality Status Provider Name and Address Organization Details Recorded Time procedure on kidney completed Sarahi King [place] [facility] 12/30/2023 11:50:46 Imaging Results Imaging Date Name Status LastModified by Organiz ation Details LastModified Time 12/03/2023 MRI, lumbar spine, w/ contrast [facility] [address] [facility] [place], [address], 12/31/2023 17:59:17 06/09/2024 CT, abdomen + pelvis, w/ contrast completed [address], [address], 07/18/2024 21:36:55 06/09/2024 CT, abdomen + pelvis, w/wo contrast completed [address], [address], 06/19/2024 13:59:35 10/05/2024 US, thyroid completed [address], [address], 10/07/2024 10:36:44 Procedure Notes None recorded. Medical Equipment None Reported. Allergies No known drug allergies Medications Name Sig Start Date Stop Date Status Note LastModified by Organization Details LastModified Time atorvastatin 20 mg tablet TAKE 1 TABLET BY MOUTH EVERY DAY active Not Available Not Available No t Available atorvastatin 10 mg tablet Take 1 tablet every day by oral route. active Not Available Not Available No t Available levothyroxine 75 mcg tablet Take 1 tablet every day by oral route for 90 days. active Not Available Not Available No t Available levothyroxine 50 mcg tablet active Not Available Not Availabl e Not Available Vitals Date Recorded Body weight Provider Name an d Address Organization Details Last Updated DateTime 12/30/2023 18124.09 g Sarahi King MA [facility] 11:44:57 Date Recorded Body mass index (BMI) Body height Provider Name and Address Organization Details Last Updated DateTime 12/30/2023 26.8 kg/m2 175.26 cm TRINA Liang - [facility] 11:45:04 Date Recorded Heart rate Provider Name an d Address Organization Details Last Updated DateTime 12/30/2023 72 /min Sarahi King MA [facility] 11:55:14 Date Recorded Oxygen saturation Oxygen saturation in Arterial blood by Pulse oximetry Provider Name and Address Organization Details Last Updated DateTime 12/30/2023 98 % 98 % Sarahi King MA [facility] 12/30/2023 11:55:17 Date Recorded Respiratory rate Provider Name a nd Address Organization Details Last Updated DateTime 12/30/2023 16 /min MONAE Clarke Attn: Accounting,[address] [place], [address], [facility] 12/30/2023 12:02:34 Date Recorded Body height Provider Name an d Address Organization Details Last Updated DateTime 06/30/2024 175.26 cm uSsanna Kelly MA [facility] 2023 11:23:38 Date Recorded Body mass index (BMI) Body weight Provider Name and Address Organization Details Last Updated DateTime 06/30/2024 27.2 kg/m2 36180 g Susanna Kelly MA [facility] 06/30/2024 11:25:48 Date Recorded Respiratory rate Provider Name a nd Address Organization Details Last Updated DateTime 06/30/2024 16 /min Susanna Kelly MA [facility] 06/30/2024 11:25:49 Date Recorded Oxygen saturation Oxygen saturation in Arterial blood by Pulse oximetry Provider Name and Address Organization Details Last Updated DateTime 06/30/2024 99 % 99 % Susanna Kelly MA [facility] 06/30/2024 11:28:32 Date Recorded Heart rate Provider Name an d Address Organization Details Last Updated DateTime 06/30/2024 67 /min Susanna Kelly MA [facility] 2023 11:28:34 Date Recorded Systolic blood pressure Diastolic blood pressure Provider Name and Address Organization Details Last Updated DateTime 12/30/2023 134 mm[Hg] 76 mm[Hg] Sarahi King MA [facility] 12/30/2023 11:54:43 Date Recorded Systolic blood pressure Diastolic blood pressure Provider Name and Address Organization Details Last Updated DateTime 12/30/2023 128 mm[Hg] 80 mm[Hg] MONAE Clarke Attn: Accounting,[address] [place], [address], [place] - [facility] 12/30/2023 12:17:08 Date Recorded Systolic blood pressure Diastolic blood pressure Provider Name and Address Organization Details Last Updated DateTime 12/30/2023 120 mm[Hg] 80 mm[Hg] MONAE Clarke Attn: Accounting,[address] [place], [address], [place] 12/30/2023 12:17:59 Date Recorded Systolic blood pressure Diastolic blood pressure Provider Name and Address Organization Details Last Updated DateTime 06/30/2024 140 mm[Hg] 82 mm[Hg] Susanna Kelly [place] [facility] 06/30/2024 11:30:59 Date Recorded Systolic blood pressure Diastolic blood pressure Provider Name and Address Organization Details Last Updated DateTime 06/30/2024 136 mm[Hg] 82 mm[Hg] Susanna Kelly [place] [facility] 06/30/2024 11:31:58 Date Recorded Systolic blood pressure Diastolic blood pressure Provider Name and Address Organization Details Last Updated DateTime 06/30/2024 128 mm[Hg] 80 mm[Hg] MONAE Clarke Attn: Accounting,[address] [place], [address], [facility] 06/30/2024 11:55:01 Social History Question Answer Notes LastModified by Organizat ion Details LastModified Time Tobacco Smoking Status Former Smoker Sarahi King [place] null, [place] 12/30/2023 11:48:44 Do You Have An Advance Directive? Yes Information not available 12/30/2023 What Is Your Level Of Alcohol Consumption? None Information not available 12/30/2023 Are You Blind Or Do You Have Difficulty Seeing? No Information not available 12/30/2023 What Is Your Level Of Caffeine Consumption? Moderate Coffee Information not available 12/30/2023 In The 14 Days Before Symptom Onset, Have You Had Close Contact With A Laboratory-confir med COVID-19 While That Case Was Ill? No Information not available 12/30/2023 In The 14 Days Before Symptom Onset, Have You Had Close Contact With A Person Who Is Under Investigation For COVID-19 While That Person Was Ill? No Information not available 12/30/2023 Have You Been To An Area Known To Be High Risk For COVID-19? No Information not available 12/30/2023 Are You Currently Employed? No Retired Information not available 12/30/2023 Are You Deaf Or Do You Have Serious Difficulty Hearing? No Information not available 12/30/2023 What Type Of Diet Are You Following? REGULAR Information not available 12/30/2023 What Is The Highest Grade Or Level Of School You Have Completed Or The Highest Degree You Have Received? [id number] Information not available 12/30/2023 Are There Any Guns Present In Your Home? No Information not available 12/30/2023 What Was The Date Of Your Most Recent Tobacco Screening? 12/30/2023 Information not available 12/30/2023 What Is Your Current Pack Years? 20-29packyea rs Information not available 06/30/2024 What Is Your Relationship Status? Information not available 12/30/2023 Do You Use Your Seat Belt Or Car Seat Routinely? Yes Information not available 12/30/2023 Do You Have Smoke And Carbon Monoxide Detectors In Your Home? Yes Information not available 12/30/2023 How Much Tobacco Do You Smoke? No Information not available 06/30/2024 Do You Feel Stressed (tense, Restless, Nervous, Or Anxious, Or Unable To Sleep At Night)? [id number] Information not available 12/30/2023 Do You Use Any Illicit Or Recreational Drugs? No Information not available 06/30/2024 Do You Use Sunscreen Routinely? No Information not available 12/30/2023 Has Tobacco Cessation Counseling Been Provided? No Information not available 06/30/2024 Do You Or Have You Ever Used Any Other Forms Of Tobacco Or Nicotine? No Information not available 12/30/2023 Sex: Unknown Functional Status Question Answer Note LastModified by Organizat ion Details LastModified Time Are you able to care for yourself? Yes Information not available 12/30/2023 What is your exercise level? Occasional Information not available 12/30/2023 Mental Status None recorded. Family History Nothing Reported. Medical History Condition Response Coronary Artery Disease N Other N Atrial Fibrillation N Kidney or Bladder Problems Y Thyroid Problems Y GI Problems N Depression N COPD N Blood Clots N Skin Problems N Anemia N Heart Attack (AK) N Anxiety Disorder N Diabetes N Muscle, Joint, or Bone Problems N Seizures/Epilepsy N Acid Reflux (GERD) N Cancer Y Stroke N Asthma N Allergies Y High Cholesterol Y Hepatitis N Liver Disease N Headaches N Heart Failure N Osteoporosis N Immunizations Vaccine Type Date Status Note Provider Nam e and Address Organization Details Recorded Time Influenza, high-dose, quadrivalent, PF 0 completed Susanna Kelly [place] null, [place] - [facility] 06/30/2024 11:28:20 Influenza, high-dose, quadrivalent, PF 2 completed TRINA [place] [facility] 06/30/2024 11:28:21 Influenza, adjuvanted, quadrivalent, PF 1 completed Susanna Kelly [place], [place] [facility] 06/30/2024 11:28:21 Influenza, adjuvanted, quadrivalent, PF 3 completed TR[place] [facility] 06/30/2024 11:28:21 COVID-19, mRNA, LNP-S, PF, 100 mcg/0.5mL dose or 50 mcg/0.25mL dose 1 completed TR[place] [facility] 06/30/2024 11:28:21 COVID-19, mRNA, LNP-S, PF, 100 mcg/0.5mL dose or 50 mcg/0.25mL dose 1 completed TR[place] [facility] 06/30/2024 11:28:21 pneumococcal polysaccharide PPV23 0 completed TR[place] [facility] 06/30/2024 11:28:21 Pneumococcal conjugate PCV 13 9 completed TRINA [place] [facility] 06/30/2024 11:28:21 zoster live 3 completed TRINA Espinoza, [place] - [facility] 06/30/2024 11:28:21 Influenza, high-dose, trivalent, PF 9 completed TR[place] [facility] 06/30/2024 11:28:21 Influenza, high-dose, trivalent, PF 8 completed TRINA [place]za, [place] - [facility] 06/30/2024 11:28:21 Influenza, split virus, trivalent, preservative 2 completed TRINA Espinoza, [place] - [facility] 06/30/2024 11:28:21 Td (adult), 2 Lf tetanus toxoid, preservative free, adsorbed 0 completed TRINA Espinoza, [place] - [facility] 06/30/2024 11:28:21 DTaP, 5 pertussis antigens 7 completed TR[place] [facility] 06/30/2024 11:28:21 Influenza, split virus, quadrivalent, PF 7 completed TRINA Espinoza, [place] - [facility] 06/30/2024 11:28:21 Past Encounters Encounter ID Performer Location Encounter Start Date Encounter Closed Date Diagnosis/Indication Diagnosis SNOMED-CT Code Diagnosis ICD10 Code Diagnosis Note [id number] MONAE Clarke formerly [facility] [place] [address] [place] [address] 12/30/2023 11:38:20 12/30/2023 12:23:55 Hyperlipidemia 72293056 E78.5 stable on atorvastat in 10mg daily. due for fasting lipids Hypothyroidism 93220356 E03.9 due for updated TFT panel. stable on levothyrox ine 50mcg daily. History of malignant neoplasm of kidney 902818356 Z85.528 right sided renal cell, with complete nephrectom y, due for UA. Vertigo 122871989 R42 4 total vertigo episode in the last few years. a few days ago was last episode. Hit him at 6am when he popped up to wake. very short lasted , usually a day or less. Long-term drug therapy 364542887 Z79.899 cmp, cbc and b12, folate labs are due History of nephrectomy 6135037493 9104 Z90.5 right sided, urology , Dr. Russell follows post management . Family his tory of hemochromatosis 607409051 Z83.49 hx noted [id number] MONAE Clarke [facility] - [place] [facility] [address] [place] [address] 06/30/2024 11:21:35 06/30/2024 12:00:31 Body mass index 25-29 - overweight 355156413 Z68.27 BMI is 27.2 Overweight 408733073 E66 .3 Hyperlipidemia 29139492 E78.5 stable on atorvastat in 10mg daily. due for fasting lipids Hypothyroidism 99351470 E03.9 due for updated TFT panel. stable on levothyrox ine 50mcg daily. History of malignant neoplasm of kidney 059611588 Z85.528 right sided renal cell, with complete nephrectom y History of nephrectomy [id number] 9104 Z90.5 right sided, urology , Dr. Russell follows post management . Family his tory of hemochromatosis 173132256 Z83.49 hx noted Long-term drug therapy 294250902 Z79.899 cmp, cbc and b12, folate labs are due Screening for malignant neoplasm of prostate 720287740 Z12.5 Annual PSA lab ordered Health Concerns Section Related Observation LastModified by Organization Detai ls LastModified Time None Recorded Concern Status LastModified by Organization Details LastModified Time None Recorded Advance Directives Directive Y: Payers Encounter Date Sequence Insurance Name Policy Number Policy Byrd Covered Member ID Byrd Member ID Guarantor Name 12/30/2023 1 [place] Rick Monroy [id number] Rick Monroy 12/30/2023 2 [place]MEDIC[place]PPLE[place] Rick Wilson [id number] Rick Monroy 06/30/2024 2 [place] Rick Wilson [id number] Rick Monroy 06/30/2024 [place] [facility] Rick Monroy [id number] Rick Monroy Notes Date Note Type Note Provider Name and Address Organization Details Recorded Time 4 text/html HyperlipidemiaReported bypatient.Notes:stable on low dose atorvastatin 10mg daily.ThyroidReported bypatient.Notes:stable on levothyroxine supplement. due for updated labs Hx of right sided renal cell cancer with nephrectomy (dr. russell). having routine f/u with him.Recently MRI with dr. russell, shows bone lesions on spine and pelvic region that is NOT cancer. MONAE Clarke Attn: Accounting,[address], [place], [address], [facility] 01/14/2024 09:40:42 4 text/html HyperlipidemiaReported bypatient.Notes:stable on low dose atorvastatin 10mg daily.ThyroidReported bypatient.Notes:stable on levothyroxine supplement. due for updated labs Hx of right sided renal cell cancer with nephrectomy (dr. russell). having routine f/u with him.Recently MRI with dr. russell, shows bone lesions on spine and pelvic region that is NOT cancer. MONAE Clarke Attn: Accounting,[address], [place], [address], [place] [facility] 07/18/2024 21:37:28
--- OUTSIDE RECORDS SUMMARY | 2024-10-13 11:07 | XMS_ITS | Clinical Summary ---
Author Organization [facility] Address [facility] [place] [address] [place] [address] Care Team Providers Care Photocopying Equipment Mechanic Name Role Phone Unavailable Primary Care Provider Unavailabl e Allergies No known active allergies Medications Multiple Vitamin (MULTI VITAMIN) Tab Take by mouth daily. 09/12/20 16 Active meloxicam 7.5 MG tablet TAKE ONE TABLET BY MOUTH DIRECTED; NOT TO BE TAKEN WITH ANY OTHER ANTI INFLAMMATORY TAKE NEEDED FOR PAIN TO FOOT. 02/22/20 21 Active pramoxine (PROCTOFOAM) 1 % foamIndications:Pr octitis Apply topically 3 (three) times daily as needed for Itching. 15 g 2 02/16/20 22 Active levothyroxine (SYNTHROID) 50 MCG tabletIndications: Acquired hypothyroidism TAKE 1 TABLET BY MOUTH EVERY DAY IN THE MORNING 90 tablet 10/30/19 23 Active atorvastatin (LIPITOR) 10 MG tabletIndications: Hyperlipidemia, unspecified hyperlipidemia type TAKE 1 TABLET BY MOUTH EVERYDAY AT BEDTIME 90 tablet 10/30/19 23 Active Active Problems Problem Noted Date Diagnosed Date Proctitis 03/14/2022 Bunion of great toe of left foot 10/13/2021 Labyrinthitis of both ears 07/26/2021 Screening for colon cancer 04/26/2021 Overview (04/26/2021): Added automatically from request for surgery [id number] Left foot pain 12/16/2020 BMI 24.0-24.9, adult 09/29/2019 Hyperplastic polyp of transverse colon 9 Acquired hypothyroidism 11/04/2018 Hyperlipidemia 05/06/2018 Acute right-sided low back pain with right-sided sciatica 04/22/2018 BMI 25.0-25.9,adult 04/18/2018 Resolved Problems Problem Noted Date Diagnosed Date Resolved Date Preop examination 10/13/2021 10/16/2021 Need for immunization against influenza 07/26/2021 08/20/2022 Encounter for screening for human immunodeficiency virus (HIV) 09/05/2018 08/10/2020 Abnormal PSA 05/06/2018 09/05/2018 Malignant neoplasm of prosta te ([facility]) 08/30/2014 11/04/2018 Pure hypercholesterolemia 08/30/2014 Overview (09/05/2018): pt to watch diet and exercise repeat at next hf Lipoma of skin and subcutaneous tissue 01/26/2013 06/11/2019 Immunizations Name Administration Dates Next Due DTaP (Daptacel) 04/18/2017 Dtap (Generic) 04/18/2017 Fluad influenza vaccine, Servando drivalent (aIIV4), Inactivated, adjuvanted, preservative free, 0.5 mL,IM use 06/28/2021 Fluzone High Dose - >Age 65 (Prefilled Syringe) 08/14/2022,06/09/2020,06/20/2018 Influenza (Generic) 05/26/2019,05/20/2017 Influenza Adult (Generic) 09/04/2023,,06/20/2018,2016,08/01/2016,08/24/2014,08/07/2013,1 Influenza Peds (Generic) 05/26/2019 MODERNA COVID-19 (12+) MRNA, LNP-S, PF, 100 MCG/ 0.5 ML DOSE 01/24/2021,12/27/2020 Pneumococcal (Pneumovax 23) 06/09/2020, 3 Pneumococcal (Prevnar 13) 05/26/2019 Pneumovax 23 25 Mcg/0.5Ml Ij Inj 06/09/2020 Td 04/18/2010,12/20/2005 Td (Tenivac) preservative free 04/18/2010 Tdap (Generic) 05/20/2012 Zoster (Zostavax) 84744 Unt/0.65Ml 09/01/2014, Family History Medical History Relation Comments thyroid cancer Daughter [place] Father Thyroid Mother Heart Disease Neg Hx Relation Status Comments Daughter Father Mother Social History Tobacco Use Types Packs/Day Years Used Date Smoking Tobacco: Former Cigarettes 0.5 15 1 971 - 1986 Smokeless Tobacco: Never Tobacco Cessation:Counseling Given: Not Answered Alcohol Use Standard Drinks/Week Comments No 0 (1 standard drink = 0.6 oz pur e alcohol) AUDIT-C Answer Date Recorded Frequency of Alcohol Consumption Never 09/05/2018 Average Number of Drinks Not on file 018 Frequency of Binge Drinking Not on file 08/17 PHQ-2 Answer Date Recorded PHQ-2 Score - If the patient scores above 3, please move on to questions 3-9 0 02/15/2022 Education Answer Date Recorded What is the highest level of school you have completed or the highest degree you have received? High school graduate 09/05/2018 Sex and Gender Information Value Date Recorded Sex Assigned at Male 09/05/2018 8:20 AM DELINQUENT TAX COLLECTION ASSISTANT Legal Sex Male 7:57 PM CDT Gender Identity Male 09/05/2018 8:20 AM DELINQUENT TAX COLLECTION ASSISTANT Sexual Orientation Straight 09/05/2018 8: 20 AM DELINQUENT TAX COLLECTION ASSISTANT Last Filed Vital Signs Vital Sign Reading Time Taken Comments Blood Pressure 127/70 08/14/2022 8:43 AM DELINQUENT TAX COLLECTION ASSISTANT Pulse 67 08/14/2022 8:43 AM DELINQUENT TAX COLLECTION ASSISTANT Temperature 36.5 ??C (97.7 ??F) 08/14/2022 8:43 AM CS T Respiratory Rate 16 08/14/2022 8:43 AM DELINQUENT TAX COLLECTION ASSISTANT Oxygen Saturation 99% 08/14/2022 8:43 AM DELINQUENT TAX COLLECTION ASSISTANT Inhaled Oxygen Concentration - - Weight 81.4 kg (179 lb 6.4 oz) 08/14/2022 8:43 A M DELINQUENT TAX COLLECTION ASSISTANT Height 175.3 cm (5' 9 ) 08/14/2022 8:43 AM DELINQUENT TAX COLLECTION ASSISTANT Body Mass Index 26.49 08/14/2022 8:43 AM DELINQUENT TAX COLLECTION ASSISTANT Plan of Treatment Health Maintenance Due Date Last Done Comments PHQ-2 (Physician [place]) 1967 Zoster Vaccines (2 of 3) 10/27/2014 09/01/2014, 08/11/2012 Annual Medicare Wellness Visit 04/12/2022 04/11/2021 COVID-19 Vaccine (3 - season) 2024 01/24/2021, 12/27/2020 Influenza Adult (#1) 2024 09/04/2023, 08/14/2022, 06/28/2021, Additional history exists PHQ-2 (Physician [place]) 09/16/2024 DTaP, Tdap and Td Vaccines (4 - Td or Tdap) 04/18/2027 04/18/2017, 04/18/2017, 05/20/2012, Additional history exists RSV Immunization or 60+ Years (1 - 1-dose 75+ series) 2028 Colorectal Cancer Screening Colonoscopy (10 Years) 05/05/2031 05/05/2021, 07/16/2012, 07/15/2012 Hepatitis C Completed 09/29/2019 Pneumococcal Vaccine: 65+ Years Completed 06/09/2020, 06/09/2020, 05/26/2019, Additional history exists Meningococcal B Vaccine Aged Out No l onger eligible based on patient's age to complete this topic Meningococcal Vaccine Aged Out No dori loan eligible based on patient's age to complete this topic RSV Immunizations Under 20 Months Aged Out No longer eligible based on patient's age to complete this topic Medical Devices Implanted Type Area Insurance Representative Device Identifier Shelf Expiration Date Model / Serial / Lot Cartiva Synthetic Cartilage Implant Implanted:Qty: 1 on 10/24/2021 by Mirtha Chang DPM at [facility] Left: Foot [employer] 03/15/2022 CAR08- / / [id number] Procedures Procedure Name Priority Date/Time Associated Diagnosis Comments HEPATITIS C ANTIBODY Routine 09/29/2019 10:09 AM DELINQUENT TAX COLLECTION ASSISTANT Encounter for assessment of STD exposure COLONOSCOPY Routine 07/16/2012 12:00 AM CDT from Last 3 Months or Most Recently Relevant to Health Maintenance Results * HEPATITIS C ANTIBODY (09/29/2019 10:09 AM DELINQUENT TAX COLLECTION ASSISTANT) HEPATITIS C AB NON-REACTI VE NON-REACTI VE 09/29/2019 9:24 PM DELINQUENT TAX COLLECTION ASSISTANT [facility] 09/29/2019 10:0 9 AM DELINQUENT TAX COLLECTION ASSISTANT us Gonzalo Kidd MD LABORATORY Final Re sult [facility] [address] [place] [address], [place] [phone] * Colonoscopy (07/16/2012 12:00 AM CDT) 07/16/2012 07/16/2012 Narrative [facility] TO EPIC CONVERSION - 07/16/2012 12:00 AM CDT Documented hx of procedure Procedure Note Md Generic ConversionMD - 07/20/2018 Documented hx of procedure us Generic Conversion Md SHEIKH GI PROCEDURE ORDERABLES Final Result [facility] TO EPIC CONVERSION from Last 3 Months or Most Recently Relevant to Health Maintenance Insurance MEDICARE [facility]
== END 2024-10-13 10:14 | disposition home or self-care (01) ==
PROVIDERS: PCP Physician Assistant; Visit Provider Urology
DX: C64.1 Malignant neoplasm of right kidney, except renal pelvis (principal); N18.32 Chronic kidney disease, stage 3b; N32.89 Other specified disorders of bladder
CPT/HCPCS: 71046; 74178; 76775; Q9967

== ENCOUNTER 2025-04-18 11:10 | Outpatient (CLI) | payer MEDICARE, SELFPAY ==
--- NOTE | ~2025-04-18 | CT_ITS ---
CT of the Abdomen and Pelvis: Indication: Abdominal pain Technique: 2.5 mm axial scans were obtained through the abdomen and pelvis following intravenous adm inistration of 100 cc of Omnipaque 350. Dose reduction technique was used on this scan by utilizing a utomated exposure control and iterative reconstruction technique. The dose-length product (DLP) was 4 38.94 mGy-cm. COMPARISON: 10/05/2024 Findings: Scans through the lung bases there is a calcified granuloma. Stable hepatic cysts. The spleen, pancreas, gallbladder, adrenals and left kidney are within normal l imits. Status post right nephrectomy. No evidence of aortic aneurysm. No lymphadenopathy. No bowel obstruction or bowel wall thickening. There is no evidence to suggest acute appendicitis. Images through the pelvis were performed. Urinary bladder unremarkable. No pelvic mass evident. No as cites. Small bilateral fat-containing inguinal hernias are present. Impression: No acute abnormality. Small bilateral fat-containing inguinal hernias. Status post right nephrectomy. Reviewed, dictated and finalized at [facility]. Impression: No acute abnormality. Small bilateral fat-containing inguinal hernias. Status post right nephrectomy.
--- OUTSIDE RECORDS SUMMARY | 2025-04-18 11:15 | XMS_ITS | Clinical Summary ---
Author Organization [facility] [employer] Address [address] [place] [address] Care Team Providers Care Amusement Park Ride Mechanic Name Role Phone Unavailable Primary Care Provider Unavailabl e Source Comments [facility] [employer],non-owned Affiliates and Associated Physician Practices is amultiple site organization consisting of ambulatory clinics and hospital sitesin [place], [place], [place] and [place]. This disclosure is being madepursuant to the Care Everywhere program and may not contain all information available regarding this patient. Last updated 18.[facility] [employer] Social History Tobacco Use Types Packs/Day Years Used Date Smoking Tobacco: Never Assessed Sex and Gender Information Value Date Recorded Sex Assigned at Not on file Legal Sex Male 6:17 AM CUSTOMER CONSULTANT Gender Identity Not on file Sexual Orientation [...] SCREENING 1955 LIPID TESTING 1955 MEDICARE AWV 12 MONTHS 1955 HEPATITIS C SCREENING 05/05/1971 DTAP/TDAP/TD VACCINES (1 - Tdap) 1972 PNEUMOCOCCAL VACCINE 50+ (1 of 1 - PCV) 2003 ZOSTER VACCINE (1 of 2) 2003 COVID-19 VACCINE (3 - season) 2024 01/24/2021, 12/27/2020 DEPRESSION SCREENING 09/16/2024 INFLUENZA VACCINE (#1) 2025 , 05/26/2019, 06/20/2018, Additional history exists Respiratory Syncytial Virus (RSV) Vaccine Pt: or [...] complete this topic MENINGOCOCCAL (Group B) VACCINE SHARED DECISION-MAKING Aged Out No longer eligible based on patient's age to complete this topic MENINGOCOCCAL GROUPS A/C/Y/W VACCINE Aged Out No longer eligible based on patient's age to complete this topic Insurance MEDICARE MEDICARE
--- OUTSIDE RECORDS SUMMARY | 2025-04-18 11:15 | XMS_ITS | Clinical Summary ---
Author Organization [facility] Address [facility] [place] [address] Care Team Providers Care Lot Porter Name Role Phone Unavailable Primary Care Provider [...] (04/26/2021): Added automatically from request for surgery [id number] Left foot pain 12/16/2020 BMI 24.0-24.9, adult [...] 05/06/2018 09/05/2018 Malignant neoplasm of prosta te ([facility]) 08/30/2014 11/04/2018 Pure hypercholesterolemia 08/30/2014 Overview (09/05/2018): pt to watch diet and exercise repeat at next hf Lipoma of skin and subcutaneous tissue 01/26/2013 06/11/2019 Immunizations Immunization Administration Dates Next Due DTaP (Daptacel) 04/18/2017 [...] free 04/18/2010 Tdap (Generic) 05/20/2012 Zoster (Zostavax) 76594 Unt/0.65Ml 09/01/2014, Family History Medical History Relation Comments thyroid cancer Daughter [place] Father Thyroid Mother Heart Disease Neg Hx [...] Sex Assigned at Male 09/05/2018 8:20 AM DEVELOPMENTAL SERVICES WORKER Legal Sex Male 7:57 PM CDT Gender Identity Male 09/05/2018 8:20 AM DEVELOPMENTAL SERVICES WORKER Sexual Orientation Straight 09/05/2018 8: 20 AM DEVELOPMENTAL SERVICES WORKER Last Filed Vital Signs Vital Sign Reading Time Taken Comments Blood Pressure 127/70 08/14/2022 8:43 AM DEVELOPMENTAL SERVICES WORKER Pulse 67 08/14/2022 8:43 AM DEVELOPMENTAL SERVICES WORKER Temperature 36.5 C (97.7 F) 08/14/2022 8:43 AM DEVELOPMENTAL SERVICES WORKER Respiratory Rate 16 08/14/2022 8:43 AM DEVELOPMENTAL SERVICES WORKER Oxygen Saturation 99% 08/14/2022 8:43 AM DEVELOPMENTAL SERVICES WORKER Inhaled Oxygen Concentration - - Weight 81.4 kg (179 lb 6.4 oz) 08/14/2022 8:43 A M DEVELOPMENTAL SERVICES WORKER Height 175.3 cm (5' 9) 08/14/2022 8:43 AM DEVELOPMENTAL SERVICES WORKER Body Mass Index 26.49 08/14/2022 8:43 AM DEVELOPMENTAL SERVICES WORKER Plan of Treatment Health Maintenance Due Date Last Done Comments Zoster Vaccines (2 of 3) 10/27/2014 09/01/2014, 11/2012 Annual Medicare Wellness Visit 04/12/2022 04/11/2021 COVID-19 Vaccine (3 - season) 2024 01/24/2021, 12/27/2020 PHQ-2 (Physician Kenaitze) 09/16/2024 DTaP, Tdap and Td Vaccines (4 - Td or Tdap) 04/18/2027 04/18/2017, 04/18/2017, 05/20/2012, Additional history exists RSV Immunization or 60+ Years (1 - 1-dose 75+ series) 2028 Colorectal Cancer Screening Colonoscopy (10 Years) 05/05/2031 05/05/2021, 07/16/2012, 07/15/2012 Hepatitis C Completed 09/29/2019 Pneumococcal Vaccine: 50+ Years Completed 06/09/2020, 06/09/2020, 05/26/2019, Additional history [...] this topic Medical Devices Implanted Type Area Registered Nurse Cardiac Device Identifier Shelf Expiration Date Model / Serial / Lot Cartiva Synthetic Cartilage Implant Implanted:Qty: 1 on 10/24/2021 by Mirtha Chang DPM at [facility] Left: Foot [employer] 03/15/2022 CAR-08- / / [id number] Procedures Procedure Name Priority Date/Time Associated Diagnosis Comments HEPATITIS C ANTIBODY Routine 09/29/2019 10:09 AM DEVELOPMENTAL SERVICES WORKER Encounter for assessment of STD exposure COLONOSCOPY Routine 07/16/2012 12:00 AM CDT from Last 3 Months or Most Recently Relevant to Health Maintenance Results * HEPATITIS C ANTIBODY (09/29/2019 10:09 AM DEVELOPMENTAL SERVICES WORKER) HEPATITIS C AB NON-REACTI VE NON-REACTI VE 09/29/2019 9:24 PM DEVELOPMENTAL SERVICES WORKER [facility] 09/29/2019 10:0 9 AM DEVELOPMENTAL SERVICES WORKER us Gonzalo Kidd MD LABORATORY Final Re sult [facility] [address] [place] [address], [place] [phone] * Colonoscopy (07/16/2012 12:00 AM CDT) 07/16/2012 07/16/2012 Narrative [facility] TO EPIC CONVERSION - 07/16/2012 12:00 AM CDT Documented hx of procedure Procedure Note Md Generic ConversionMD - 07/20/2018 Documented hx of procedure us Generic Conversion Md SHEIKH GI PROCEDURE ORDERABLES Final Result [facility] TO EPIC CONVERSION from Last 3 Months or Most Recently Relevant to Health Maintenance Insurance MEDICARE [facility]
--- OUTSIDE RECORDS SUMMARY | 2025-04-18 11:15 | XMS_ITS | Encounter Summary ---
Author Organization [facility] Address [address] [place] [address] Care Team Providers Care Gang Boss Name Role Phone Gonzalo Kidd MD Primary Care Provider U serenityailsadie Encounter Details Date Type Department Care Team (Latest Contact Info) Description 05/16/2018 Abstract [facility] Gonzalo Kidd MD Social History Tobacco Use Types Packs/Day Years Used Date Smoking Tobacco: Never Assessed Sex and Gender Information Value Date Recorded Sex Assigned at Male 09/05/2018 8:20 AM HIGH RAW SUGAR BOILER Legal Sex Male 7:57 PM CDT Gender Identity Male 09/05/2018 8:20 AM HIGH RAW SUGAR BOILER Sexual Orientation Straight 09/05/2018 8: 20 AM HIGH RAW SUGAR BOILER documented as of this encounter Plan of Treatment Not on file documented as of this encounter Visit Diagnoses Not on filedocumented in this encounter Care Teams Gang Boss Relationship Specialty Start Date End Date Gonzalo Kidd MD PCP - General INTERNAL MEDICINE 09/04/18 11/13/22 documented as of this encounter
--- OUTSIDE RECORDS SUMMARY | 2025-04-18 11:15 | XMS_ITS | Encounter Summary ---
Author Organization [facility] Address [address] [facility] [place] [address] Care Team Providers Care Funeral Sales Manager Name Role Phone Unavailable Primary Care Provider Unavailabl e Encounter Details Date Type Department Care Team (Late st Contact Info) Description 08/13/2023 Lab Requisition [facility] - Pathology Lab [address] [place] [address] Hakeem Cosme MD [address] [place] [address] Illness, unspecified Social History Tobacco Use Types Packs/Day Years Used Date Smoking Tobacco: Never Assessed Sex and Gender Information Value Date Recorded Sex Assigned at Not on file Legal Sex Male 6:17 AM STORE CLERK CHECKER Gender Identity Not on file Sexual Orientation Not on file documented as of this encounter Plan of Treatment Not on file documented as of this encounter Procedures Procedure Name Priority Date/Time Associated Diagnosis Comments PATHOLOGY TISSUE Routine 08/06/2023 2:38 PM STORE CLERK CHECKER Illness, unspecified documented in this encounter Results * PATHOLOGY TISSUE (08/06/2023 2:38 PM STORE CLERK CHECKER) Case Report Surgical Pathology Report Case: [id number] Authorizing Provider: Hakeem Cosme MD Collected: 08/06/2023 02:38 PM Ordering Location: [facility] Care Pathology Lab Received: 08/13/2023 03:01 PM Pathologist: Lupe Trinidad MD Specimens: A) - Kidney Nephrec Total B) - Ureter Resect 08/15/2023 11:14 AM STORE CLERK CHECKER U PATHOLOGY LAB Final Diagnosis RECEIVED FOR REVIEW FROM [facility], [place], [place] ([facility] [id number], 08/06/23) Kidney, right, nephrectomy (A) - Renal [...] No evidence of malignancy 08/15/2023 11:14 AM STORE CLERK CHECKER [facility] PATHOLOGY LAB at [address]4 STORE CLERK CHECKER Microscopic Description and Comment Microscopic examination substantiates the above diagnosis. Received for review from [facility], [address] [place] [address] [address] [facility], [place] [address] are 28 slides labeled [id number] and Rick Monroy, accompanied by blocks A1-3, A5-7, A9-19 and B1-5 and the outside pathology draft report. Initial intraoperative frozen section evaluation, processing and permanent H&E sections were performed at [facility], and the case was sent to Dr. Leigh Trinidad at [facility] for primary interpretation, at the request of Dr. Abbie Cosme. 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 The [...] AMACR and CK7 stains was performed at [facility] at [facility], [address] [facility] [address], [place] [address]. The technical portion of the napsin-A and CAIX stains was performed at [facility], [address] [place] [address]. 08/15/2023 11:[address] [facility] Clinical History The patient is a 68-year-old man with a right renal mass. Operative procedure: hand-assisted laparoscopic right nephroureterectomy. 08/15/2023 11:[address] [facility] Materials Received Received are 28 slides and 22 blocks labeled [id number] along with a copy of the outside pathology report. [place] [address]. All original materials are returned to the referring institution, along with a copy of our final report. 08/15/2023 11:[address] [facility] Pathologist Location at [facility] 08/15/2023 11:[address] [facility] Disclaimer The performance characteristics of all immunohistochemical and indirect immunofluorescence stains (if any) cited in this report were determined by the Histopathology Laboratory of [facility]. Some of these tests were [...] the attending (teaching) pathologist. 08/15/2023 11:[address] [facility] Embedded Images 08/15/2023 11:[address] [facility] Pathology/Cytology SPECIMEN FROM URETER OBTAINED BY URETERECTOMY / Unknown 08/06/2023 2:38 PM STORE CLERK CHECKER 08/13/2023 3:01 PM STORE CLERK CHECKER Miscellaneous samples (specimen) SPECIMEN FROM URETER OBTAINED BY URETERECTOMY / Unknown 08/06/2023 2:38 PM STORE CLERK CHECKER 08/13/2023 3:01 PM STORE CLERK CHECKER Hakeem Cosme MD LAB - PATHOLOGY/CYTOLOGY ORDERAB LES Final Result [facility] PATHOLOGY LAB [address] [facility] [phone] documented in this encounter Visit Diagnoses Diagnosis Illness, unspecified documented in this encounter
--- OUTSIDE RECORDS SUMMARY | 2025-04-18 11:15 | XMS_ITS | Encounter Summary ---
Author Organization [facility] Address [address] [place] [id number] Care Team Providers Care Oil Dipper Name Role Phone Gonzalo Kidd MD Primary Care Provider U serenityailsadie Encounter Details Date Type Department Care Team (Latest Contact Info) Description 06/13/2018 Abstract [facility] Gonzalo Kidd MD Social History Tobacco Use Types Packs/Day Years Used Date Smoking Tobacco: Never Assessed Sex and Gender Information Value Date Recorded Sex Assigned at Male 09/05/2018 8:20 AM COAT BASTER Legal Sex Male 7:57 PM CDT Gender Identity Male 09/05/2018 8:20 AM COAT BASTER Sexual Orientation Straight 09/05/2018 8: 20 AM COAT BASTER documented as of this encounter Plan of Treatment Not on file documented as of this encounter Visit Diagnoses Not on filedocumented in this encounter Care Teams Oil Dipper Relationship Specialty Start Date End Date Gonzalo Kidd MD PCP - General INTERNAL MEDICINE 09/04/18 11/13/22 documented as of this encounter
--- OUTSIDE RECORDS SUMMARY | 2025-04-18 11:15 | XMS_ITS | Encounter Summary ---
Author Organization [facility] Address [address] [place] [address] Care Team Providers Care Cigarette Seller Name Role Phone Unavailable Primary Care Provider Unavailabl e Encounter Details Date Type Department Care Team (Late st Contact Info) Description 08/20/2023 Lab Requisition [facility] [address] [place] [address] Lupe Trinidad MD [address] [place] [address] Social History Tobacco Use Types Packs/Day Years Used Date Smoking Tobacco: Never Assessed Sex and Gender Information Value Date Recorded Sex Assigned at Not on file Legal Sex Male 6:17 AM HEEL SLUGGER Gender Identity Not on file Sexual Orientation Not on file documented as of this encounter Plan of Treatment Not on file documented as of this encounter Procedures Procedure Name Priority Date/Time Associated Diagnosis Comments SLIDE PREP HISTOLOGY Routine 08/20/2023 2:29 PM HEEL SLUGGER documented in this encounter Results * SLIDE PREP HISTOLOGY (08/20/2023 2:29 PM HEEL SLUGGER) Client Specimen ID # [id number] 3 2:29 PM [facility] Number of Slides Received 3 3 2:29 PM [facility] Comment Stat-6 unorderable 3 2:29 PM [facility] Slide Prep Complete Testing is technical only and does not require an interpretation of results. 3 2:29 PM [facility] at [address] HEEL SLUGGER Comment:All histochemical an d/or immunohistochemical results are interpreted with controls that demonstrate appropriate staining reactions before reporting results. Note on use of immunocytochemistry reagents: This test was developed and its performance characteristic determined by [facility], Department of Laboratory Medicine. It has not [...] ENTIRE KIDNEY / Unknown 08/20/2023 2:22 PM HEEL SLUGGER us Lupe Trinidad MD LAB - PATHOLOGY/CYTOLOGY YEIMY ENCISO Final Result [facility] [address] [place], [place] [id number] documented in this encounter Visit Diagnoses Not on filedocumented in this encounter
[2025-04-18 12:04] LABS: Estimated Glomerular Filt Rate 35
== END 2025-04-18 11:11 | disposition home or self-care (01) ==
PROVIDERS: PCP Physician Assistant; Visit Provider Physician Assistant
DX: K40.20 Bilateral inguinal hernia, without obstruction or gangrene, not specified as recurrent (principal); Z90.5 Acquired absence of kidney
CPT/HCPCS: 74177; Q9967